=== PATIENT | female | born 1950 | race African-American/Black ===

== ENCOUNTER 2018-03-25 11:24 | Observation (INO) | payer MEDICARE, OTHER ==
--- OUTSIDE RECORDS SUMMARY | 2018-03-25 11:26 | XMS REPORT | Clinical Summary ---
:[address] [facility] Address [address] [place] [address] Care Team Providers Name Role Phone Flo Holloway MD Primary Care Provider Allergies No Known Allergies Medications Medication Sig Dispensed Refills Start Date End Date Status ammonium lactate USE HS UTD 0 03/09/2016 Active (LAC-HYDRIN) 12 % lotion LUMIGAN 0.01 % 0 03/21/2016 Active ophthalmic drops SYNTHROID 112 mcg 0 04/28/2016 Active tablet aspirin (ECOTRIN) Take 81 mg by 0 Active 81 MG enteric mouth daily. coated tablet lisinopril-hydroch Take 1 tablet 90 tablet 3 11/11/2017 Active lorothiazide by mouth (PRINZIDE,ZESTORET daily. IC) 10-12.5 mg per tablet lisinopril-hydroch TAKE ONE 30 tablet 6 05/01/2016 06/11/2017 Discontinued lorothiazide TABLET BY (PRINZIDE,ZESTORET MOUTH ONCE IC) 10-12.5 mg per DAILY FOR 30 tablet DAYS lisinopril-hydroch TAKE ONE 30 tablet 3 06/11/2017 11/11/2017 Discontinued lorothiazide TABLET BY (PRINZIDE,ZESTORET MOUTH ONCE IC) 10-12.5 mg per DAILY tablet Active Problems Not on file Encounters Date Type Specialty Care Team Description 11/11/2017 Refill Cardiology Lyla Melissa MA Med Refill 07/02/2017 Orders Only Cardiology Alejandro Thompson MD 06/11/2017 Refill Cardiology Alejandro Thompson MD Med Refill 05/29/2017 Office Visit Cardiology Alejandro Thompson MD Chronic systolic heart failure (Primary Dx); 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 Pulse 63 05/29/2017 11:20 AM MARINE OPERATIONS COORDINATOR Temperature - - Respiratory Rate - - Oxygen Saturation - - Inhaled Oxygen Concentration - - Weight 87.1 kg (192 lb) 05/29/2017 11:20 AM MARINE OPERATIONS COORDINATOR Height 165.1 cm (5' 5") 05/29/2017 11:20 AM MARINE OPERATIONS COORDINATOR Body Mass Index 31.95 05/29/2017 11:20 AM MARINE OPERATIONS COORDINATOR Plan of Treatment Date Type Specialty Care Team Description 05/29/2018 Office Visit Cardiology Alejandro Thompson MD [address] [place] [address] Health Maintenance Due Date Last Done Comments CERVICAL CANCER SCREENING 1973 BREAST CANCER SCREENING 2002 COLON CANCER SCREENING 2002 SHINGRIX VACCINE (1 of 2) 2002 ZOSTER VACCINE 2012 PNEUMOCOCCAL POLYSACCHARIDE VACCINE AGE 65 AND OVER 2017 PNEUMOCOCCAL-13 2017 INFLUENZA VACCINE 12/04/2017 Results Not on fileafter 03/24/2017 Insurance Payer Benefit Plan / Group Subscriber ID Type Phone Address UHC MEDICARE UNITED/[facility] xxxxxxxxx HMO ([place]) [facility] [place] [phone] Advance Directives Patient has advance care planning documents on file. For more information, please contact:Kirby Wang[address] [address]
[2018-03-25 12:28] LABS: Absolute Lymphocytes (CBC) 2.3 K/uL (0.7-4.9); Absolute Monocytes 0.6 K/uL (0.1-1.3); Absolute Neutrophil 4.5 K/uL (1.8-8.0); Basophils % 0.2 % (0-1.3); Eosinophils % 2.4 % (0-4.4); Hematocrit 38.4 % (36.0-45.0); MCH 30.3 pg (27.0-35.0); MCV 88.9 fL (80-100); MPV 9.2 fL (7.6-11.3); Monocytes % 7.5 % (3.3-12.3); RBC Red Blood Cell Count 4.32 M/uL (3.86-4.86)
[2018-03-25 12:36] LABS: Protime INR 1.09
--- NOTE | 2018-03-25 12:37 | RAD REPORT ---
EXAM DESCRIPTION: RAD - Chest Single View - 03/25/2018 12:26 pm CLINICAL HISTORY: CHEST PAIN Chest pain. COMPARISON: CHEST SINGLE VIEW dated 01/04/2012 FINDINGS: Portable technique limits examination quality. The lungs are grossly clear. The heart is mildly enlarged in size with a single lead pacer/ defibrill ator device. No displaced fractures. IMPRESSION: No acute intrathoracic process suspected.
[2018-03-25 12:43] LABS: ALT/SGPT 22 U/L (12-78); AST/SGOT 18 U/L (15-37); Albumin 3.9 g/dL (3.4-5.0); Alkaline Phosphatase 100 U/L (45-117); BUN Blood Urea Nitrogen 12 mg/dL (7-18); Bicarbonate 31 mmol/L (21-32); Bilirubin Direct 0.1 mg/dL (0-0.2); Bilirubin Total 0.6 mg/dL (0.2-1.0); Glucose Level 100 mg/dL (74-106); Magnesium 2.4 mg/dL (1.8-2.4); NT PRO-BNP 287 pg/mL (<125); Potassium 4.8 mmol/L (3.5-5.1); Protein, Total 8.6 g/dL (6.4-8.2); Sodium Level 142 mmol/L (136-145); Troponin (Emerg Dept Use Only) < 0.02 ng/mL (0.0-0.045)
--- NOTE | 2018-03-25 13:53 | ER ---
Nurse's Notes [facility] Name: Greta Lambert Age: 67 yrs Sex: Female : 1950 Arrival Date: 03/25/2018 Time: 11:26 Bed 4 Private MD: Out, [facility] Diagnosis: Chest pain, unspecified Presentation: 03/25 11:34 Presenting complaint: Patient states: Substernal chest pain, radiates to left arm jl7 started last night and got worse this morning. Transition of care: patient was not received from another setting of care. Onset of symptoms was March 24, 2018 at 23:00. Risk Assessment: Do you want to hurt yourself or someone else? Patient reports no desire to harm self or others. Initial Sepsis Screen: Does the patient meet any 2 criteria? No. Patient's initial sepsis screen is negative. Does the patient have a suspected source of infection? No. Patient's initial sepsis screen is negative. Care prior to arrival: None. 11:34 Method Of Arrival: Ambulatory [facility] 11:34 Acuity: DAGMAR 2 jl7 Historical: - Allergies: 11:37 No Known Allergies; jl7 - Home Meds: 11:37 Lisinopril Oral [Active]; aspirin 81 mg oral TbEC [Active]; jl7 - PMHx: 11:37 CVA; Myocardial infarction; jl7 - PSHx: 11:37 defibrillator implant device; jl7 - Immunization history:: Adult Immunizations up to date. - Social history:: Smoking status: Patient/guardian denies using tobacco. - Ebola Screening: : No symptoms or risks identified at this time. Screenin:23 Abuse screen: Denies threats or abuse. Denies injuries from another. Nutritional hb screening: No deficits noted. Tuberculosis screening: No symptoms or risk factors identified. Fall Risk None identified. Assessment: 12:00 General: Appears in no apparent distress. Behavior is calm, cooperative. Pain: hb Complains of pain in chest Pain radiates to left arm Pain currently is 0 out of 10 on a pain scale. at worst was 8 out of 10 on a pain scale. Quality of pain is described as pressure, Pain began suddenly, 1 day ago. Neuro: Level of Consciousness is awake, alert, obeys commands, Oriented to person, place, time, situation. Cardiovascular: Heart tones S1 S2 present Capillary refill < 3 seconds Patient's skin is warm and dry. Respiratory: Airway is patent Trachea midline Respiratory effort is even, unlabored, Respiratory pattern is regular, symmetrical, Breath sounds are clear bilaterally. GI: No signs and/or symptoms were reported involving the gastrointestinal system. : No signs and/or symptoms were reported regarding the genitourinary system. EENT: No signs and/or symptoms were reported regarding the EENT system. Derm: Skin is intact, is healthy with good turgor. Musculoskeletal: No signs and/or symptoms reported regarding the musculoskeletal system. 12:51 Reassessment: Patient appears in no apparent distress at this time. No changes from hb previously documented assessment. Patient and/or family updated on plan of care and expected duration. Pain level reassessed. Patient is alert, oriented x 3, equal unlabored respirations, skin warm/dry/pink. 13:45 Reassessment: Patient appears in no apparent distress at this time. No changes from hb previously documented assessment. Patient and/or family updated on plan of care and expected duration. Pain level reassessed. Patient is alert, oriented x 3, equal unlabored respirations, skin warm/dry/pink. 14:45 Reassessment: Patient appears in no apparent distress at this time. No changes from hb previously documented assessment. Patient and/or family updated on plan of care and expected duration. Pain level reassessed. Patient is alert, oriented x 3, equal unlabored respirations, skin warm/dry/pink. 15:45 Reassessment: Patient appears in no apparent distress at this time. No changes from hb previously documented assessment. Patient and/or family updated on plan of care and expected duration. Pain level reassessed. Patient is alert, oriented x 3, equal unlabored respirations, skin warm/dry/pink. 16:45 Reassessment: Patient appears in no apparent distress at this time. No changes from hb previously documented assessment. Patient and/or family updated on plan of care and expected duration. Pain level reassessed. Patient is alert, oriented x 3, equal unlabored respirations, skin warm/dry/pink. Vital Signs: 11:37 BP 162 / 80; Pulse 64; Resp 18; Temp 97.7; Pulse Ox 100% ; Weight 84.82 kg; Height 5 jl7 ft. 7 in. (170.18 cm); Pain 0/10; 12:30 BP 156 / 80; Pulse 66; Resp 15; Pulse Ox 100% on R/A; hb 13:30 BP 148 / 88; Pulse 66; Resp 16; Pulse Ox 100% on R/A; Pain 1/10; hb 14:45 BP 156 / 86; Pulse 65; Resp 15; Pulse Ox 100% on R/A; Pain 0/10; hb 16:00 BP 164 / 84; Pulse 62; Resp 16; Pulse Ox 99% on R/A; Pain 0/10; hb 11:37 Body Mass Index 29.29 (84.82 kg, 170.18 cm) jl7 ED Course: 11:04 Missed attempt(s): 20 gauge in right antecubital area. 3 11:26 Patient arrived in ED. mr 11:27 Out, of [facility] is Private Physician. mr 11:36 Triage completed. jl7 11:37 Arm band placed on right wrist. jl7 11:46 Duran Juarez PA is PHCP. jr8 11:46 Geoff Burk MD is Attending Physician. jr8 12:00 Patient has correct armband on for positive identification. Placed in gown. Bed in low hb position. Call light in reach. Side rails up X 1. quality assurance monitor final on. Pulse ox on. NIBP on. 12:04 Initial lab(s) drawn, by me, sent to lab. Inserted saline lock: 20 gauge in right 3 antecubital area, using aseptic technique. Blood collected. 12:20 Darlene Navarrete RN is Primary Nurse. hb 12:25 X-ray completed. Portable x-ray completed in exam room. Patient tolerated procedure jb2 well. 13:52 Leti Luke MD is Hospitalizing Provider. jr8 16:58 Diet: Patient given a heart healthy meal tray. Tolerated well. sg 17:30 No provider procedures requiring assistance completed. Patient admitted, IV remains in hb place. Patient maintains SpO2 saturation greater than 95% on room air. Administered Medications: 15:02 Drug: Aspirin Chewable Tablet 324 mg Route: PO; iw 16:00 Follow up: Response: No adverse reaction hb Outcome: 13:52 Decision to Hospitalize by Provider. jr8 17:30 Admitted to Tele accompanied by tech, family with patient, via wheelchair, with chart, hb Report called to Jeff RN 17:30 Condition: stable 17:30 Instructed on the need for admit, Demonstrated understanding of instructions. 17:37 Patient left the ED. hb Signatures: Phil Segura, RN JESUSITA Le Resendez mr Salvador, Obinna jb2 Chiquis Holloway, RN Duran Ibrahim PA PA jr8 Darlene Navarrete RN RN hb Leal, Jahala, RN RN jl7 Michelle Koehler 3
--- NOTE | 2018-03-25 13:53 | EDPHYS ---
Physician Documentation [facility] Name: Greta Lambert Age: 67 yrs Sex: Female : 1950 Arrival Date: 03/25/2018 Time: 11:26 Bed 4 Private MD: Out, [facility] ED Physician Geoff Burk HPI: 03/25 13:45 This 67 yrs old Black Female presents to ER via Ambulatory with complaints of Chest jr8 Pain. 13:45 The patient or guardian reports chest pain that is located primarily in the substernal jr8 area. Onset: acutely, today. The pain radiates to the left arm, the left shoulder. Associated signs and symptoms: The patient has no apparent associated signs or symptoms. The chest pain is described as a pressure. Duration: The patient or guardian reports a single episode. Modifying factors: The symptoms are alleviated by nothing. the symptoms are aggravated by nothing. Severity of pain: At its worst the pain was moderate in the emergency department the pain is unchanged. The patient has not experienced similar symptoms in the past. The patient has not recently seen a physician. Historical: - Allergies: 11:37 No Known Allergies; jl7 - Home Meds: 11:37 Lisinopril Oral [Active]; aspirin 81 mg oral TbEC [Active]; jl7 - PMHx: 11:37 CVA; Myocardial infarction; jl7 - PSHx: 11:37 defibrillator implant device; jl7 - Immunization history:: Adult Immunizations up to date. - Social history:: Smoking status: Patient/guardian denies using tobacco. - Ebola Screening: : No symptoms or risks identified at this time. ROS: 13:45 Eyes: Negative for injury, pain, redness, and discharge, ENT: Negative for injury, jr8 pain, and discharge, Neck: Negative for injury, pain, and swelling, Respiratory: Negative for shortness of breath, cough, wheezing, and pleuritic chest pain, Abdomen/GI: Negative for abdominal pain, nausea, vomiting, diarrhea, and constipation, Back: Negative for injury and pain, MS/Extremity: Negative for injury and deformity, Skin: Negative for injury, rash, and discoloration, Neuro: Negative for headache, weakness, numbness, tingling, and seizure. 13:45 Cardiovascular: Positive for chest pain, Negative for edema, orthopnea, palpitations, paroxysmal nocturnal dyspnea. Exam: 13:45 Eyes: Pupils equal round and reactive to light, extra-ocular motions intact. Lids and jr8 lashes normal. Conjunctiva and sclera are non-icteric and not injected. Cornea within normal limits. Periorbital areas with no swelling, redness, or edema. ENT: Nares patent. No nasal discharge, no septal abnormalities noted. Tympanic membranes are normal and external auditory canals are clear. Oropharynx with no redness, swelling, or masses, exudates, or evidence of obstruction, uvula midline. Mucous membranes moist. Neck: Trachea midline, no thyromegaly or masses palpated, and no cervical lymphadenopathy. Supple, full range of motion without nuchal rigidity, or vertebral point tenderness. No Meningismus. Cardiovascular: Regular rate and rhythm with a normal S1 and S2. No gallops, murmurs, or rubs. Normal PMI, no JVD. No pulse deficits. Respiratory: Lungs have equal breath sounds bilaterally, clear to auscultation and percussion. No rales, rhonchi or wheezes noted. No increased work of breathing, no retractions or nasal flaring. Abdomen/GI: Soft, non-tender, with normal bowel sounds. No distension or tympany. No guarding or rebound. No evidence of tenderness throughout. Back: No spinal tenderness. No costovertebral tenderness. Full range of motion. Skin: Warm, dry with normal turgor. Normal color with no rashes, no lesions, and no evidence of cellulitis. MS/ Extremity: Pulses equal, no cyanosis. Neurovascular intact. Full, normal range of motion. Neuro: Awake and alert, GCS 15, oriented to person, place, time, and situation. Cranial nerves II-XII grossly intact. Motor strength 5/5 in all extremities. Sensory grossly intact. Cerebellar exam normal. Normal gait. Vital Signs: 11:37 BP 162 / 80; Pulse 64; Resp 18; Temp 97.7; Pulse Ox 100% ; Weight 84.82 kg; Height 5 jl7 ft. 7 in. (170.18 cm); Pain 0/10; 12:30 BP 156 / 80; Pulse 66; Resp 15; Pulse Ox 100% on R/A; hb 13:30 BP 148 / 88; Pulse 66; Resp 16; Pulse Ox 100% on R/A; Pain 1/10; hb 14:45 BP 156 / 86; Pulse 65; Resp 15; Pulse Ox 100% on R/A; Pain 0/10; hb 16:00 BP 164 / 84; Pulse 62; Resp 16; Pulse Ox 99% on R/A; Pain 0/10; hb 11:37 Body Mass Index 29.29 (84.82 kg, 170.18 cm) jl7 MDM: 11:46 Patient medically screened. jr8 13:45 The patient was given aspirin in the Emergency Department. jr8 13:50 Data reviewed: vital signs, nurses notes, lab test result(s), EKG, radiologic studies, jr8 plain films, and as a result, I will discharge patient. Data interpreted: Pulse oximetry: on room air is 100 %. Interpretation: normal. Counseling: I had a detailed discussion with the patient and/or guardian regarding: the historical points, exam findings, and any diagnostic results supporting the discharge/admit diagnosis, lab results, radiology results, the need for further work-up and treatment in the hospital. 03/25 11:47 Order name: Basic Metabolic Panel [facility] 03/25 11:47 Order name: CBC with Diff [facility] 03/25 11:47 Order name: LFT's [facility] 03/25 11:47 Order name: Magnesium [facility] 03/25 11:47 Order name: NT PRO-BNP [facility] 03/25 11:47 Order name: PT-INR [facility] 03/25 11:47 Order name: Troponin (emerg Dept Use Only) [facility] 03/25 12:39 Order name: CBC with Automated Diff; Complete Time: 13:32 [facility] 03/25 12:40 Order name: Protime (+INR); Complete Time: 13:32 [facility] 03/25 12:43 Order name: Basic Metabolic Panel; Complete Time: 13:32 [facility] 03/25 12:43 Order name: Liver (Hepatic) Function; Complete Time: 13:32 [facility] 03/25 12:43 Order name: Troponin (Emerg Dept Use Only); Complete Time: 13:32 [facility] 03/25 12:43 Order name: NT PRO-BNP; Complete Time: 13:32 [facility] 03/25 12:43 Order name: Magnesium; Complete Time: 13:32 [facility] 03/25 11:47 Order name: XRAY Chest (1 view) [facility] 03/25 11:47 Order name: EKG; Complete Time: 11:48 [facility] 03/25 11:47 Order name: Cardiac monitoring; Complete Time: 12:05 [facility] 03/25 11:47 Order name: EKG - Nurse/Tech; Complete Time: 12:05 [facility] 03/25 11:47 Order name: IV Saline Lock; Complete Time: 12:05 [facility] 03/25 11:47 Order name: Labs collected and sent; Complete Time: 12:05 [facility] 03/25 11:47 Order name: O2 Per Protocol; Complete Time: 12:05 [facility] 03/25 11:47 Order name: O2 Sat Monitoring; Complete Time: 12:05 [facility] 03/25 12:37 Order name: RAD; Complete Time: 13:32 [facility] 03/25 14:16 Order name: Diet Regular; Complete Time: 14:16 [facility] 03/25 15:46 Order name: Diet Regular; Complete Time: 15:46 hb Administered Medications: 15:02 Drug: Aspirin Chewable Tablet 324 mg Route: PO; 16:00 Follow up: Response: No adverse reaction hb Disposition: 03/26 06:42 Co-signature as Attending Physician, Geoff Burk MD I agree with the assessment and maria luisa plan of care. Disposition: 03/25/18 13:52 Hospitalization ordered by Leti Luke for Observation. Preliminary diagnosis is Chest pain, unspecified. - Bed requested for Telemetry/MedSurg (observation). - Status is Observation. hb - Condition is Stable. - Problem is new. - Symptoms have improved. UTI on Admission? No Signatures: Dispatcher [employer] [facility] Mariah Espinoza Corey, MD MD cha Williams, Irene, RN RN Duran Juarez PA PA jr8 Darlene Navarrete, RN RN Caitlyn Castillo RN RN jl7 Corrections: (The following items were deleted from the chart) 03/25 16:19 13:52 Hospitalization Ordered by Leti Luke MD for Observation. Preliminary diagnosis bd is Chest pain, unspecified. Bed requested for Telemetry/MedSurg (observation). Status is Observation. Condition is Stable. Problem is new. Symptoms have improved. UTI on Admission? No. jr8 17:37 16:19 03/25/2018 13:52 Hospitalization Ordered by Leti Luke MD for Observation. hb Preliminary diagnosis is Chest pain, unspecified. Bed requested for Telemetry/MedSurg (observation). Status is Observation. Condition is Stable. Problem is new. Symptoms have improved. UTI on Admission? No. bd
[2018-03-25] MEDS ORDERED: ASPIRIN 81 MG CHEWABLE TABLET ONE (15:05)
--- NOTE | 2018-03-25 16:00 | EKG ---
Test Date: 2018-03-25 Test Time: 11:37:38 Metal Machinist: FAWN MEASUREMENT RESULTS: Intervals: Rate: 64 [place]: 168 QRSD: 86 QT: 392 QTc: 404 [place]: P: 71 [place]: 168 QRS: -21 T: 5 INTERPRETIVE STATEMENTS: Normal sinus rhythm T wave abnormality, consider lateral ischemia Abnormal ECG Compared to ECG 01/04/2012 21:15:56 First degree AV block no longer present T-wave abnormality still present Possible ischemia still present Electronically Signed On 03-25-18 15:59:09 OPTICAL INSTRUMENT ASSEMBLY SUPERVISOR by Laron Del Angel
[2018-03-25] MEDS ORDERED: ALBUTEROL 2.5 MG/3 ML NEB SOL NEB PRN (17:20)
--- NOTE | 2018-03-25 17:42 | P.HP ---
Certification for Inpatient Patient admitted to: Observation With expected LOS: <2 Midnights Practitioner: I am a practitioner with admitting privileges, knowledge of patient current condition, hospital course, and medical plan of care. Services: Services provided to patient in accordance with Admission requirements found in Title 42 Section 412.3 of the Code of Federal Regulations Patient History Date of Service: 03/25/18 Reason for admission: Chest pain History of Present Illness: This is a 67-year-old female with a history of NV and CVA and admitted for left- sided chest pain. Per patient pain started around 10 a.m. the morning of admission, was pressure-like pain that radiated to the left arm and down the left arm. No alleviating or exacerbating factors. Does not take any medications and did not take any medications to help with the pain. The pain lasted approximately 30 min, resolved spontaneously. She states that she has not had any prior episodes like this for a very long time though she seems to be a poor historian. Per patient, she is not really sure much because her sister takes care for at home. Sister was not at bedside today. Per patient, she does not take any medications at home, states that she was supposed to be on some previously was stopped A while ago." In the ER, her EKG had no acute changes, similar to previous ones. Chest x-ray without any acute abnormalities. 1st set of troponins negative. At the time of my exam, she is alert oriented x3, hemodynamically stable and was able to answer questions appropriately though she was unsure of much of her health history. Allergies No Known Allergies Allergy (Unverified 01/04/12 18:13) - Past Medical/Surgical History Diabetic: No Review of Systems General: Unremarkable Eyes: Unremarkable ENT: Unremarkable Respiratory: Unremarkable Cardiovascular: Chest Pain, As per HPI Gastrointestinal: Unremarkable Genitourinary: Unremarkable Musculoskeletal: Unremarkable Integumentary: Unremarkable Neurological: Unremarkable Lymphatics: Unremarkable Physical Examination - Physical Exam General: Alert, In no apparent distress, Oriented x3 HEENT: Atraumatic, PERRLA, Mucous membr. moist/pink, EOMI, Sclerae nonicteric Neck: Supple, 2+ carotid pulse no bruit, No LAD, Without JVD or thyroid abnormality Respiratory: Clear to auscultation bilaterally, Normal air movement Cardiovascular: Regular rate/rhythm, Normal S1 S2 Gastrointestinal: Normal bowel sounds, No tenderness Musculoskeletal: No tenderness Integumentary: No rashes Neurological: Normal gait, Normal speech, Normal strength at 5/5 x4 extr, Normal tone, Normal affect Lymphatics: No axilla or inguinal lymphadenopathy - Studies Laboratory Data (last 24 hrs) 03/25/18 12:01: PT 12.9 H, INR 1.09 03/25/18 12:01: WBC 7.6, Hgb 13.1, Hct 38.4, Plt Count 187 03/25/18 12:01: Sodium 142, Potassium 4.8, BUN 12, Creatinine 0.90, Glucose 100 , Magnesium 2.4, Total Bilirubin 0.6, AST 18, ALT 22, Alkaline Phosphatase 100 Assessment and Plan - Plan This 67-year-old female with: Chest pain, rule out NV Pain is now resolved, though patient with a history of stroke and had NV in the past. Trend troponins, serial EKG Start beta-chely, [place]-inhibitor as needed. Oxygen as needed Morphine for pain control as needed. Echo ordered, pending. IV fluids History of CVA No evidence of focal neurological deficits at this time. Will continue to monitor History of NV DVT prophylaxis: Lovenox. GI prophylaxis: Not needed Diet: Heart healthy Disposition: Admit patient to floor with tele. Monitor overnight, pending symptomatic improvement and echo. Will confirm with sister regarding medications and other medical conditions once sister present at bedside. - Advance Directives Does patient have a Living Will: No Does patient have a Durable POA for Healthcare: No Physician Review: Patient Assessed, Agree with Above Assessment and Plan Time Spent Managing Pts Care (In Minutes): 45
[2018-03-25 20:08] VITALS: BMI 30.2
[2018-03-26 04:59] LABS: Absolute Lymphocytes (CBC) 2.8 K/uL (0.7-4.9); Absolute Monocytes 0.8 K/uL (0.1-1.3); Absolute Neutrophil 4.8 K/uL (1.8-8.0); Basophils % 0.3 % (0-1.3); Lymphocytes % 32.2 % (15.3-44.8); MCH 29.9 pg (27.0-35.0); MCV 89.2 fL (80-100); MPV 8.8 fL (7.6-11.3); Monocytes % 9.6 % (3.3-12.3); RBC Red Blood Cell Count 4.03 M/uL (3.86-4.86)
[2018-03-26 05:12] LABS: Albumin 3.5 g/dL (3.4-5.0); Bilirubin Total 0.5 mg/dL (0.2-1.0); Potassium 4.5 mmol/L (3.5-5.1); Protein, Total 7.7 g/dL (6.4-8.2)
[2018-03-26] MEDS ORDERED: ENOXAPARIN 40 MG/0.4 ML SQ SCH (09:00)
[2018-03-26 10:48] VITALS: BP 169/74; TEMP 98.5
[2018-03-26 12:04] VITALS: O2SAT 96
--- NOTE | 2018-03-26 12:34 | ECHO ---
HEIGHT: 5 ft 6.5 in WEIGHT: 190 lb 1 oz DATE OF STUDY: 03/26/[address]: Leti Luke MD 2-DIMENSIONAL: YES M.MODE: YES DOPPLER: YES COLOR FLOW: YES TDS: PORTABLE: DEFINITY: BUBBLE STUDY: DIAGNOSIS: CHEST PAIN CARDIAC HISTORY: CATHERIZATION: NO SURGERY: NO PROSTHETIC VALVE: NO PACEMAKER: YES MEASUREMENTS (cm) DIASTOLIC (NORMALS) SYSTOLIC (NORMALS) IVSd 1.3 (0.6-1.2) LA Diam 3.4 (1.9-4.0) LVEF 64% LVIDd 4.3 (3.5-5.7) LVIDs 2.8 (2.0-3.5) %FS 34% LVPWd 1.3 (0.6-1.2) Ao Diam 2.3 (2.0-3.7) 2 DIMENSIONAL ASSESSMENT: RIGHT ATRIUM: NORMAL LEFT ATRIUM: NORMAL RIGHT VENTRICLE: PACEMAKER CATHETER LEFT VENTRICLE: NORMAL TRICUSPID VALVE: NORMAL MITRAL VALVE: NORMAL PULMONIC VALVE: NORMAL AORTIC VALVE: NORMAL PERICARDIAL EFFUSION: NONE AORTIC ROOT: NORMAL LEFT VENTRICULAR WALL MOTION: NORMAL DOPPLER/COLOR FLOW: MILD MITRAL REGURGITATION AND TRICUSPID REGURGITATION. NORMAL RIGHT VENTRICULAR SYSTOLIC PRESSURE. COMMENTS: TECHNOLOGIST: TED KIM
--- NOTE | 2018-03-26 14:51 | P.SSS ---
Patient History Date of Service: 03/26/18 Reason for admission: Chest pain History of Present Illness: This is a 67-year-old female with a history of UT and CVA and admitted for left- sided chest pain. Per patient pain started around 10 a.m. the morning of admission, was pressure-like pain that radiated to the left arm and down the left arm. No alleviating or exacerbating factors. Does not take any medications and did not take any medications to help with the pain. The pain lasted approximately 30 min, resolved spontaneously. She states that she has not had any prior episodes like this for a very long time though she seems to be a poor historian. Per patient, she is not really sure much because her sister takes care for at home. Sister was not at bedside today. Per patient, she does not take any medications at home, states that she was supposed to be on some previously was stopped A while ago." In the ER, her EKG had no acute changes, similar to previous ones. Chest x-ray without any acute abnormalities. 1st set of troponins negative. At the time of my exam, she is alert oriented x3, hemodynamically stable and was able to answer questions appropriately though she was unsure of much of her health history. Allergies No Known Allergies Allergy (Verified 03/25/18 18:10) Home Medications: Aspirin 81 mg PO DAILY 03/25/18 Levothyroxine [Synthroid*] 125 mcg PO [id number] 03/25/18 Lisinopril 10 mg PO DAILY 03/25/18 - Past Medical/Surgical History Has patient received pneumonia vaccine in the past: No Diabetic: No -: Stroke -: Heart attack -: Hypertension -: Hypothyroidism -: appendectomy -: defib placement - Social History Smoking Status: Former smoker Alcohol use: No CD- Drugs: No Caffeine use: Yes Place of Residence: Home Review of Systems As noted Physical Examination - Vital Signs Temperature: 98.5 F Blood Pressure: 169/74 Pulse: 64 Respirations: 20 Pulse Ox (%): 96 - Physical Exam General: Alert, In no apparent distress, Oriented x3, Other (Unable to recall short-term) HEENT: Atraumatic, PERRLA, Mucous membr. moist/pink, EOMI, Sclerae nonicteric Neck: Supple, 2+ carotid pulse no bruit, No LAD, Without JVD or thyroid abnormality Respiratory: Clear to auscultation bilaterally, Normal air movement Cardiovascular: Regular rate/rhythm, Normal S1 S2 Gastrointestinal: Normal bowel sounds, No tenderness Musculoskeletal: No tenderness Integumentary: No rashes Neurological: Normal speech, Normal strength at 5/5 x4 extr, Normal tone, Normal affect Treatment Summary: Patient was admitted for chest pain. Chest pain had resolved prior to coming to the hospital, she was admitted for 24 observation. Troponins remained negative, echocardiogram was normal. No complaints of chest pains while in the hospital. Patient's ham stripper is Dr. Thompson in [place]. At the time of discharge, patient was alert oriented x3, hemodynamically stable and denying any chest pain. Tolerating a regular diet, denies any nausea, vomiting, and diaphoresis, shortness of breath, and abdominal complaints or complaints. Patient's symptoms/diagnosis was explained, all questions were answered and patient and sister verbalized understanding. She was discharged with instructions to follow up with cardiology in 1-2 weeks. No medication changes made at this time. - Disposition Discharge Date: 03/26/18 Disposition: ROUTINE DISCHARGE Condition: GOOD Patient Discharge Instructions: Please follow up with the primary care physician in 1 week. Please follow up with ham stripper in 2 weeks Diet: AHA Activity: Ad thierno Physician Review: Patient Assessed, Agree with Above Assessment and Plan Time Spent Managing Pts Care (In Minutes): 45
== END 2018-03-26 15:01 | disposition home or self-care (01) ==
LOC: ER 11:24 → ERHOLD 14:19 → 2ND 18:02
PROVIDERS: ADMIT Family Medicine; ATTEND Family Medicine
DX: R07.9 Chest pain, unspecified (principal); I10 Essential (primary) hypertension; E03.9 Hypothyroidism, unspecified; Z95.810 Presence of automatic (implantable) cardiac defibrillator; I25.2 Old myocardial infarction; Z86.73 Personal history of transient ischemic attack (TIA), and cerebral infarction without residual deficits
CPT/HCPCS: 36415; 71045; 80048; 80053; 80061; 80076; 83735; 83880; 84484 ×3; 85025 ×2; 85610; 93005; 93306; 94760 ×3; 99285; J1650; G0378

== ENCOUNTER 2018-04-25 10:57 | Emergency (ER) | payer MEDICARE ==
--- NOTE | 2018-04-25 12:04 | ER ---
Nurse's Notes [facility] Name: Greta Lambert Age: 67 yrs Sex: Female : 1950 Arrival Date: 04/25/2018 Time: 11:00 Bed 18 Private MD: Out, [facility] Diagnosis: Low back pain Presentation: 04/25 11:01 Presenting complaint: Patient states: my back is hurting since this morning; denies hj trauma, pain non the L lower part; denies radiating pain; denies N/V; denies fever an chills; pain is 8/10;. Transition of care: patient was not received from another setting of care. Onset of symptoms was April 25, 2018. Risk Assessment: Do you want to hurt yourself or someone else? Patient reports no desire to harm self or others. Initial Sepsis Screen: Does the patient meet any 2 criteria? No. Patient's initial sepsis screen is negative. Does the patient have a suspected source of infection? No. Patient's initial sepsis screen is negative. Care prior to arrival: None. 11:01 Method Of Arrival: Ambulatory 11: Acuity: DAGMAR 4 hj Triage Assessment: 11:04 General: Appears in no apparent distress. uncomfortable, Behavior is calm, cooperative, hj appropriate for age. Pain: Complains of pain in left low back. Musculoskeletal: Circulation, motion, and sensation intact. Capillary refill. Historical: - Allergies: 11:04 No Known Allergies; hj - Home Meds: 11:04 lisinopril Oral [Active]; levothyroxine oral [Active]; aspirin 81 mg Oral TbEC [Active];hj - PMHx: 11:04 CVA; Myocardial infarction; hj - PSHx: 11:04 defibrillator implant device; hj - Immunization history:: Adult Immunizations up to date. - Social history:: Smoking status: Patient/guardian denies using tobacco, Patient/guardian denies using alcohol. - Ebola Screening: : Patient negative for fever greater than or equal to 101.5 degrees Fahrenheit, and additional compatible Ebola Virus Disease symptoms Patient denies exposure to infectious person Patient denies travel to an Ebola-affected area in the 21 days before illness onset. Screenin:04 Abuse screen: Denies threats or abuse. Denies injuries from another. Nutritional hj screening: No deficits noted. Tuberculosis screening: No symptoms or risk factors identified. Fall Risk None identified. Assessment: 11:30 General: Appears in no apparent distress. uncomfortable, Behavior is calm, cooperative, jl7 appropriate for age. Pain: Complains of pain in low back area Pain does not radiate. Pain currently is 8 out of 10 on a pain scale. Is continuous. Neuro: Level of Consciousness is awake, alert, obeys commands, Oriented to person, place, time, Adhesive Bandage Making Operator are equal bilaterally Moves all extremities. Full function Gait is steady. Cardiovascular: Patient's skin is warm and dry. Respiratory: Airway is patent Respiratory effort is even, unlabored, Respiratory pattern is regular, symmetrical. GI: No signs and/or symptoms were reported involving the gastrointestinal system. : No signs and/or symptoms were reported regarding the genitourinary system. EENT: No signs and/or symptoms were reported regarding the EENT system. Derm: Skin is pink, warm \T\ dry. Musculoskeletal: No signs and/or symptoms reported regarding the musculoskeletal system. Vital Signs: 11:04 BP 137 / 61; Pulse 61; Resp 18; Temp 97.6(TE); Pulse Ox 98% on R/A; Weight 77.11 kg; hj Height 5 ft. 6 in. (167.64 cm); Pain 8/10; 11:30 BP 137 / 62; Pulse 62; Resp 16; Pulse Ox 98% ; Pain 8/10; jl7 11:04 Body Mass Index 27.44 (77.11 kg, 167.64 cm) ED Course: 11:00 Patient arrived in ED. mr 11:00 Out, [facility] is Private Physician. mr 11:03 Triage completed. 11:04 Arm band placed on left wrist. 11:04 Patient has correct armband on for positive identification. Bed in low position. Call light in reach. Side rails up X 1. Adult w/ patient. 11:08 Akila Beck FNP-C [facility] sn 11:08 Canelo Meehan MD is Attending Physician. [facility] 11:42 Urine Culture Sent. [facility] 11:43 Urine Microscopic Only Sent. [facility] 11:43 Urine collected: clean catch specimen, clear. 5 11:52 Urine Culture Sent. [facility] 11:52 Urine Dipstick--Ancillary (enter results) Sent. [facility] 11:52 Urine Microscopic Only Sent. [facility] 11:59 Caitlyn Castillo, RN is Primary Nurse. 7 12:25 No provider procedures requiring assistance completed. Patient did not have IV access jl7 during this emergency room visit. Administered Medications: 12:19 Drug: Flexeril 10 mg Route: PO; jl7 12:26 Follow up: Response: No adverse reaction; Medication administered at discharge. 7 12:22 Not Given (Patient Refused): TORadol 60 mg IM once 7 Outcome: 12:04 Discharge ordered by . snceline 12:25 Discharged to home ambulatory. jl7 12:25 Condition: stable 12:25 Discharge instructions given to patient, family, Instructed on discharge instructions, follow up and referral plans. medication usage, Demonstrated understanding of instructions, follow-up care, medications, Prescriptions given X 2. 12:26 Patient left the ED. 7 Signatures: Akila Beck, CONSUMER CREDIT COUNSELOR-C CONSUMER CREDIT COUNSELOR-Csnw MalLe Odilon Valadez, RN RN Abigail Briceño [facility] Caitlyn Castillo, RN RN jl7 Corrections: (The following items were deleted from the chart) 11:06 11:04 Pulse 61bpm; Resp 18bpm; Pulse Ox 98% RA; Temp 97.6F Temporal; 77.11 kg; Height 5 hj ft. 6 in.; BMI: 27.4; Pain 8/10; hj
--- NOTE | 2018-04-25 12:04 | EDPHYS ---
Physician Documentation [facility] Name: Greta Lambert Age: 67 yrs Sex: Female : 1950 Arrival Date: 04/25/2018 Time: 11:00 Bed 18 Private MD: Out, [facility] ED Physician Canelo Meehan HPI: 04/25 12:11 This 67 yrs old Black Female presents to ER via Ambulatory with complaints of Back Pain.snw 12:11 The patient presents with pain that is acute. The symptoms are located in the low back. snw Onset: The symptoms/episode began/occurred suddenly, today. The pain does not radiate. Associated signs and symptoms: The patient has no apparent associated signs or symptoms. The problem was sustained got up from bed and noted pain, pain on movement from sitting to standing.. Severity of symptoms: At their worst the symptoms were moderate. The patient has experienced similar episodes in the past. The patient has not recently seen a physician. denies trauma, fever, dysuria. Historical: - Allergies: 11:04 No Known Allergies; hj - Home Meds: 11:04 lisinopril Oral [Active]; levothyroxine oral [Active]; aspirin 81 mg Oral TbEC [Active];hj - PMHx: 11:04 CVA; Myocardial infarction; hj - PSHx: 11:04 defibrillator implant device; hj - Immunization history:: Adult Immunizations up to date. - Social history:: Smoking status: Patient/guardian denies using tobacco, Patient/guardian denies using alcohol. - Ebola Screening: : Patient negative for fever greater than or equal to 101.5 degrees Fahrenheit, and additional compatible Ebola Virus Disease symptoms Patient denies exposure to infectious person Patient denies travel to an Ebola-affected area in the 21 days before illness onset. ROS: 12:08 Constitutional: Negative for fever, chills, and weight loss, Eyes: Negative for injury, snw pain, redness, and discharge, ENT: Negative for injury, pain, and discharge, Neck: Negative for injury, pain, and swelling, Cardiovascular: Negative for chest pain, palpitations, and edema, Respiratory: Negative for shortness of breath, cough, wheezing, and pleuritic chest pain, Abdomen/GI: Negative for abdominal pain, nausea, vomiting, diarrhea, and constipation, : Negative for injury, bleeding, discharge, and swelling, MS/Extremity: Negative for injury and deformity, Skin: Negative for injury, rash, and discoloration, Neuro: Negative for headache, weakness, numbness, tingling, and seizure. 12:08 Back: Positive for pain with movement, of the lumbar area. Exam: 12:06 Constitutional: This is a well developed, well nourished patient who is awake, alert, snw and in no acute distress. Head/Face: Normocephalic, atraumatic. Eyes: Pupils equal round and reactive to light, extra-ocular motions intact. Lids and lashes normal. Conjunctiva and sclera are non-icteric and not injected. Cornea within normal limits. Periorbital areas with no swelling, redness, or edema. ENT: Nares patent. No nasal discharge, no septal abnormalities noted. Tympanic membranes are normal and external auditory canals are clear. Oropharynx with no redness, swelling, or masses, exudates, or evidence of obstruction, uvula midline. Mucous membranes moist. Neck: Trachea midline, no thyromegaly or masses palpated, and no cervical lymphadenopathy. Supple, full range of motion without nuchal rigidity, or vertebral point tenderness. No Meningismus. Chest/axilla: Normal chest wall appearance and motion. Nontender with no deformity. No lesions are appreciated. Cardiovascular: Regular rate and rhythm with a normal S1 and S2. No gallops, murmurs, or rubs. Normal PMI, no JVD. No pulse deficits. Respiratory: Lungs have equal breath sounds bilaterally, clear to auscultation and percussion. No rales, rhonchi or wheezes noted. No increased work of breathing, no retractions or nasal flaring. Abdomen/GI: Soft, non-tender, with normal bowel sounds. No distension or tympany. No guarding or rebound. No evidence of tenderness throughout. Skin: Warm, dry with normal turgor. Normal color with no rashes, no lesions, and no evidence of cellulitis. MS/ Extremity: Pulses equal, no cyanosis. Neurovascular intact. Full, normal range of motion. Neuro: Awake and alert, GCS 15, oriented to person, place, time, and situation. Cranial nerves II-XII grossly intact. Motor strength 5/5 in all extremities. Sensory grossly intact. Cerebellar exam normal. Normal gait. 12:06 Back: pain, that is moderate, ROM is normal, painful, with flexion, normal spinal alignment noted, CVA tenderness, is absent, muscle spasm, is appreciated in the low back area. 12:06 Musculoskeletal/extremity: Exam is negative for 12:06 Skin: Exam negative for 12:06 Neuro: Exam negative for acute changes. Vital Signs: 11:04 BP 137 / 61; Pulse 61; Resp 18; Temp 97.6(TE); Pulse Ox 98% on R/A; Weight 77.11 kg; hj Height 5 ft. 6 in. (167.64 cm); Pain 8/10; 11:30 BP 137 / 62; Pulse 62; Resp 16; Pulse Ox 98% ; Pain 8/10; jl7 11:04 Body Mass Index 27.44 (77.11 kg, 167.64 cm) hj MDM: 11:56 Patient medically screened. snw 12:08 Data reviewed: vital signs, nurses notes. Data interpreted: Pulse oximetry: on room air snw is 98 %. Interpretation: normal. Counseling: I had a detailed discussion with the patient and/or guardian regarding: the historical points, exam findings, and any diagnostic results supporting the discharge/admit diagnosis, the presence of at least one elevated blood pressure reading (>120/80) during this emergency department visit, lab results, the need for outpatient follow up, to return to the emergency department if symptoms worsen or persist or if there are any questions or concerns that arise at home. Special discussion: Based on the history and exam findings, there is no indication for further emergent testing or inpatient evaluation. I discussed with the patient/guardian the need to see the primary care provider for further evaluation of the symptoms. 04/25 11:13 Order name: Urine Culture snw 04/25 11:13 Order name: Urine Microscopic Only; Complete Time: 12:12 snw 04/25 11:13 Order name: Urine Dipstick-Ancillary (obtain specimen); Complete Time: 11:52 snw 04/25 11:43 Order name: Urine Dipstick--Ancillary (enter results); Complete Time: 12:25 lt1 Administered Medications: 12:19 Drug: Flexeril 10 mg Route: PO; jl7 12:26 Follow up: Response: No adverse reaction; Medication administered at discharge. jl7 12:22 Not Given (Patient Refused): TORadol 60 mg IM once jl7 Disposition: 14:48 Co-signature as Attending Physician, Canelo Meehan MD. rn Disposition: 04/25/18 12:04 Discharged to Home. Impression: Low back pain. - Condition is Stable. - Discharge Instructions: Back Pain, Adult, Musculoskeletal Pain, Back Injury Prevention, [id number], Back Exercises, [id number], Cryotherapy, Rehydration, Adult, Heat Therapy. - Prescriptions for Diclofenac Sodium 75 mg Oral Tablet, Delayed Release (E.C.) - take 1 tablet by ORAL route 2 times per day; 14 tablet. orphenadrine citrate 100 mg Oral Tablet Sustained Release - take 1 tablet by ORAL route 2 times per day As needed; 20 tablet. - Medication Reconciliation Form, Thank You Letter, Antibiotic Education, Prescription Opioid Use form. - Follow up: Private Physician; When: 2 - 3 days; Reason: Recheck today's complaints, Continuance of care, Re-evaluation by your physician. Follow up: Emergency Department; When: As needed; Reason: Worsening of condition. Signatures: Dispatcher [employer] EDMS Akila Beck, SUPERVISOR FILTRATION-C SUPERVISOR FILTRATION-Csnw Canelo Meehan MD MD rn Joaquin, Henry, RN RN hj Leal, Jahala, RN RN jl7 Corrections: (The following items were deleted from the chart) 12:26 12:04 04/25/2018 12:04 Discharged to Home. Impression: Low back pain. Condition is jl7 Stable. Forms are Medication Reconciliation Form, Thank You Letter, Antibiotic Education, Prescription Opioid Use. Follow up: Private Physician; When: 2 - 3 days; Reason: Recheck today's complaints, Continuance of care, Re-evaluation by your physician. Follow up: Emergency Department; When: As needed; Reason: Worsening of condition. snw
[2018-04-25 12:10] LABS: Urine Bacteria <20 /HPF (<20); Urine Culture Reflex Order NOT NEEDED; Urine RBC <5 /HPF (NONE SEEN)
[2018-04-25 12:20] LABS: Urine Blood NEGATIVE (NEG); Urine Glucose NEGATIVE (NEG); Urine Protein NEGATIVE (NEG); Urine Specific Gravity 1.025 (1.005-1.030); Urine pH 5.5 (5.0-7.0)
[2018-04-25] MEDS ORDERED: KETOROLAC 30 MG/ML INJ ONE (12:25)
[2018-04-25] MEDS ORDERED: CYCLOBENZAPRINE 10 MG TAB ONE (12:25)
[2018-04-25 12:46] VITALS: TEMP 97.6; O2SAT 98
[2018-04-25 12:48] VITALS: BP 137/62
--- OUTSIDE RECORDS SUMMARY | 2018-04-25 18:51 | XMS REPORT | Clinical Summary ---
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 Last Filed Vital Signs Vital Sign Reading Time Taken Blood Pressure 158/60 05/29/2017 11:20 AM DEMOLITION ENGINEER Pulse 63 05/29/2017 11:20 AM DEMOLITION ENGINEER Temperature - - Respiratory Rate - - Oxygen Saturation - - Inhaled Oxygen Concentration - - Weight 87.1 kg (192 lb) 05/29/2017 11:20 AM DEMOLITION ENGINEER Height 165.1 cm (5' 5") 05/29/2017 11:20 AM DEMOLITION ENGINEER Body Mass Index 31.95 05/29/2017 11:20 AM DEMOLITION ENGINEER Plan of Treatment Date Type Specialty Care Team Description 05/29/2018 Office Visit Cardiology Alejandro Thompson MD [address] [place] [address] Health Maintenance Due Date Last Done Comments CERVICAL CANCER SCREENING 1973 BREAST CANCER SCREENING 2002 COLON CANCER SCREENING 2002 SHINGLES VACCINES (1 of 2) 2002 PNEUMOCOCCAL POLYSACCHARIDE VACCINE AGE 65 AND OVER 2017 PNEUMOCOCCAL-13 2017 INFLUENZA VACCINE 12/04/2017 Results Not on fileafter 04/24/2017 Insurance Payer Benefit Plan / Group Subscriber ID Type Phone Address UHC MEDICARE UNITED/CARE [facility] xxxxxxxxx HMO Advance Directives Patient has advance care planning documents on file. For more information, please contact:[place] [address]
== END 2018-04-25 12:26 | disposition home or self-care (01) ==
LOC: ER 10:57
DX: M54.5 Low back pain (principal); I25.2 Old myocardial infarction; Z86.73 Personal history of transient ischemic attack (TIA), and cerebral infarction without residual deficits; Z79.82 Long term (current) use of aspirin
CPT/HCPCS: 81003; 81015; 87086; 87088; 99283

== ENCOUNTER 2020-02-16 13:15 | Emergency (ER) | payer MEDICARE ==
--- OUTSIDE RECORDS SUMMARY | 2020-02-16 14:18 | XMS REPORT | Clinical Summary ---
:1950 Author Organization [facility] Address [address] [place] [address] Care Team Providers Name Role Phone Flo Holloway MD Primary Care Provider Allergies No Known Active Allergies Medications Medication Sig Dispensed Refills Start End Date Status Date LUMIGAN 0.01 % nightly. 0 Activ e ophthalmic drops 6 aspirin (ECOTRIN) 81 MG Take 81 mg 0 Active enteric coated tablet by mouth daily. mv-min/iron/folic/calciu Take by 0 Active m/vitK (WOMEN'S mouth MULTIVITAMIN ORAL) daily. lisinopriL-hydrochloroth Take 1 30 tablet 0 Active iazide (PRINZIDE) tablet by 0 10-12.5 mg per tablet mouth once daily carvediloL (COREG) 12.5 Take 1 60 tablet 11 Active MG tabletIndications: tablet 0 21 Chronic systolic heart (12.5 mg failure (HCC) total) by mouth 2 (two) times a day. levothyroxine Take 125 0 Active (SYNTHROID) 125 mcg mcg by tablet mouth daily. atorvastatin (LIPITOR) Take 1 30 tablet 11 0 Active 20 mg tabletIndications: tablet (20 0 21 Hypercholesterolemia mg total) by mouth daily. Default OP ins SYNTHROID 112 mcg tablet daily. 0 12/20 Discontinued 6 20 (Dose adjustment ) lisinopril-hydrochloroth Take 1 90 tablet 3 05/15 Discontinued iazide tablet by 8 20 (PRINZIDE,ZESTORETIC) mouth 10-12.5 mg per tablet daily. 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) (Primary Dx); MD Zamudio systlola c heart failure (HCC); Bilateral carot id artery occlusion; Presence of aut omatic cardioverter/defibrillator (AICD); 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); Hypercholestero lemia 12/21/2019 Travel 12/15/2019 Orders Only Cardiology ProviderRuben MD 11/26/2019 Travel 11/02/2019 Office Visit Cardiology Alejandro Thompson, Atheroscirene rosis of [place] coronary artery of [place] heart with angina pectoris (HCC) (Primary Dx); MD Robb brown c heart failure (HCC); 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); Presence of aut omatic cardioverter/defibrillator (AICD); Diabetes mellit us without complication (HCC); Hypercholestero lemia; Bilateral carot id artery occlusion; Atherosclerosis of [place] artery of both lower extremities with intermittent claudication (HCC); Abdominal aorti c aneurysm without rupture (HCC) 11/02/2019 Orders Only Cardiology ProviderRuben MD 11/02/2019 Travel 10/19/2019 Travel 09/17/2019 Refill Alejandro Escobar Med Refill 05/16/2019 Refill Alejandro Escobar Med Refill 05/15/2019 Refill Alejandro Escobar, Med Refill after 02/15/2019 Surgical History Surgery Date Site/Laterality Comments CARDIAC DEFIBRILLATOR PLACEMENT Medical History Medical History Date Comments Arrhythmia CVA (cerebral vascular accident) ([facility]) Hypertension Myocardial infarction (HCC) ACC/AHA stage C chronic systolic heart failure EF is 35 to 40% ([facility]) Coronary artery disease 1998 hx of anterior w all infarct Social History Tobacco Use Types Packs/Day Years Used Date Former Smoker Smokeless Tobacco: Former User Sex Assigned at Date Recorded Not on file Last Filed Vital Signs Vital Sign Reading Time Taken Comments Blood Pressure 150/67 12/21/2019 12:14 PM CDT Pulse 70 12/21/2019 12:14 PM CDT Temperature 36.5 C (97.7 F) 11/02/2019 9:27 AM CDT Respiratory Rate - - Oxygen Saturation - - Inhaled Oxygen Concentration - - Weight 76.7 kg (169 lb) 12/21/2019 12:14 PM CDT Height 170.2 cm (5' 7") 12/21/2019 8:40 AM CDT Body Mass Index 26.47 12/21/2019 8:40 AM CDT Plan of Treatment Date Type Specialty Care Team Description 12/20/2020 Office Visit Cardiology Alejandro Thompson MD [id number] [phone] Health Maintenance Due Date Last Done Comments DIABETIC RETINAL EYE EXAM 1950 DIABETIC FOOT EXAM 1962 URINE MICROALBUMIN 1962 BREAST CANCER SCREENING 2002 COLONOSCOPY SCREENING 2002 SHINGLES VACCINES (#1) 2002 65+ PNEUMOCOCCAL VACCINE (1 of 1 - PPSV23) 2017 INFLUENZA VACCINE 12/05/2019 Procedures Procedure Name Priority Date/Time Associated Diagnosis Comme nts NM MYOCARDIAL Routine 12/21/2019 Atherosclerosis of [place] R esults for PERFUSION REST 12:03 PM CDT coronary artery of [place] this procedure STRESS 1 DAY heart with angina pectoris a re in the ([facility]) results section. CV STRESS TEST Routine 12/21/2019 Atherosclerosis [place] Results for NUCLEAR CARDIO 12:03 PM CDT coronary artery of [place] this procedure heart with angina pectoris a re in the ([facility]) results section. PV PHYSIOLOGIC Routine 12/21/2019 Atherosclerosis [place] Results for ARTERIAL LOWER 11:24 AM CDT artery of both lower this procedure EXTREMITY W EXERCISE extremities with are in the intermittent claudication re sults ([facility]) section. US DUPLEX ARTERIAL Routine 12/21/2019 Atherosclerosis of jj nestor Results for LOWER EXTREMITY 11:13 AM CDT artery of both lower this procedure BILATERAL extremities with are in the intermittent claudication re sults ([facility]) section. US DUPLEX AORTA Routine 12/21/2019 Abdominal aortic aneurysm Results for INFERIOR VENA CAVA 10:30 AM CDT without rupture (HCC) this procedure COMPLETE are in the results section. US CAROTID DUPLEX Routine 12/21/2019 Bilateral carotid arter y Results for BILATERAL 10:18 AM CDT occlusion this procedure are in the results section. TTE COMPLETE, WO Routine 12/21/2019 Atherosclerosis of nativ e Results for CONTRAST, W DOPPLER 9:55 AM CDT coronary artery of na tive this procedure ([id number]) heart with angina pectoris a re in the ([facility]) results section. LIPID PANEL Routine 12/12/2019 Hypercholesterolemia Results for 9:11 AM CDT this procedure are in the results section. HEPATIC FUNCTION Routine 12/12/2019 Hypercholesterolemia Res ults for PANEL 9:11 AM CDT this procedure are in the results section. HEMOGLOBIN A1C Routine 12/12/2019 Diabetes mellitus without Results for 9:11 AM CDT complication ([facility]) this proc edure are in the results section. CBC WITH PLATELET Routine 12/12/2019 Atherosclerosis of fior ve Results for AND DIFFERENTIAL 9:11 AM CDT coronary artery of nativ e this procedure heart with angina pectoris a re in the ([facility]) results section. BASIC METABOLIC Routine 12/12/2019 Atherosclerosis [place] Results for PANEL 9:11 AM CDT coronary artery of [place] th is procedure heart with angina pectoris a re in the ([facility]) results section. [id number] Routine 12/12/2019 IMPLANTABLE Routine 07/16/2019 DEFIBRILLATOR ON after 02/15/2019 Results Cv stress test (12/21/2019 12:03 PM CDT) Pathologist Sig nature Resting HR 59 [facility] Resting BP 150/73 [facility] Peak MET Achieved 1.0 [facility] Protocol Name LEXISCAN [facility] Time in Exercise Phase 00:01:07 [facility] Max Systolic BP 150 [facility] Max Diastolic BP 73 [facility] Max Heart Rate 88 [facility] Max Predicted Heart 153 [facility] MUSE Rate Target HR Formula (220 - Age)*100% [facility] MUSE Test Indication Screening for CAD [facility]USE Chest Pain Statement none [facility] Reason for Termination LEXISCAN INFUSED [facility] MUSE Target HR 153.00 bpm [facility] M[facility] Percent HR 57.52 % [facility] Post Peak HR 88 bpm [facility] Post Peak BP 150/67 mmHg [facility] MUSE Specimen Narrative Performed At This result has an attachment that is no t available. Lexiscan myocardial perfusion imaging study [facility] MUSE No ischemia stress EKG change No chest pain Normal hemodynamics Myocardial perfusion imaging is performed Performing Organization Address [facility] Phon e Number [facility] MUSE [address] [place] [address] Nm myocardial perfusion (12/21/2019 12:03 PM CDT) Pathologist Sig nature Target HR 153.00 bpm [facility] Exercise duration (sec) 7 sec [facility] Resting HR 59 BPM [facility] Resting BP 150/73 mmHg [facility] Percent HR 57.52 % [facility] Exercise duration (min) 1 min [facility] Estimated workload 1.0 METS [facility] Post Peak HR 88 bpm [facility] Post Peak BP 150/73 mmHg [facility] Max Predicted Heart Rate 153 BPM [facility] Specimen Narrative Performed At This result has an attachment that is no t available. [facility] Study Quality: good. The study is consistent with myocardial infarction. This study result indicates an intermediate risk of cardiac , or nonfatal infarction, over the ensuing year. The study is consistent with myocardial infarction. Abnormal and with global abnormality left ventricul ar systolic function. Global wall motion is mildly hypokinetic. Large apical scar without ischemia. Mildly reduced LV systolic function. Performing Organization Address [facility] Phon e Number [facility] [address] [place] [address] Pv physiologic arterial lower extremity w exercise w cristal (12/21/2019 11:24 AM CDT) Pathologist Sig nature Right CRISTAL 0.97 [facility] Left CRISTAL 0.97 [facility] Specimen Narrative Performed At This result has an attachment that is no t available. Normal bilateral ABIs [facility] Right CRISTAL is 1.1 and left CRISTAL is 1.2 Performing Organization Address [facility] Phon e Number [facility] [address] [place] [address] Us duplex arterial lower extremity (12/21/2019 11:13 AM CDT) Pathologist Sig nature LT ATIB DIST PSV 31.50 cm/s [facility] LT ATIB PROX PSV 70.00 cm/s [facility] RT ATIB DIST PSV 47.20 cm/s [facility] RT ATIB PROX PSV 72.00 cm/s [facility] LT PROX PAINTING INSTRUCTOR PSV 161.00 cm/s [facility] RT PROX PAINTING INSTRUCTOR PSV 215.00 cm/s [facility] LT JUWAN PROX PSV -88.60 cm/s [facility] RT JUWAN PROX PSV -61.50 cm/s [facility] LT POP DIST PSV -106.00 cm/s [facility] LT POP PROX PSV 72.30 cm/s [facility] RT POP DIST PSV -109.00 cm/s [facility] RT POP PROX PSV 75.70 cm/s [facility] LT SUPERVISOR FORMING DEPARTMENT DIST PSV 44.40 cm/s [facility] LT SUPERVISOR FORMING DEPARTMENT PROX PSV 37.50 cm/s [facility] RT SUPERVISOR FORMING DEPARTMENT DIST PSV 77.90 cm/s [facility] RT SUPERVISOR FORMING DEPARTMENT PROX PSV 55.50 cm/s HM [facility] LT SFA DIST PSV -129.00 cm/s HM [facility] LT SFA MID PSV -122.00 cm/s HM [facility] LT SFA PROX PSV -149.00 cm/s HM [facility] RT SFA DIST PSV -176.00 cm/s HM [facility] RT SFA MID PSV -140.00 cm/s HM [facility] RT SFA PROX PSV -184.00 cm/s HM [facility] LT YANIRA MAX PSV 70.00 cm/s [facility] RT YANIRA MAX PSV 72.00 cm/s [facility] LT JUWAN MAX PSV 88.60 cm/s [facility] RT JUWAN MAX PSV 61.50 cm/s HM [facility] LT POP MAX PSV 106.00 cm/s HM [facility] RT POP MAX PSV 109.00 cm/s HM [facility] LT PTS MAX PSV 44.40 cm/s HM [facility] RT SUPERVISOR FORMING DEPARTMENT MAX PSV 77.90 cm/s HM [facility] LT SFA MAX PSV 149.00 cm/s HM [facility] RT SFA MAX PSV 184.00 cm/s [facility] Specimen Narrative Performed At This result has an attachment that is no t available. Mild atherosclerotic plaques throughout the both lower extremity [facility] arteries with hemodynamically significant aging Biphasic waveforms in both lower extremity arteries Normal bilateral ABIs Performing Organization Address City/State/ZIP Code Phon e Number [facility] [address] [facility] [place] [address] Us duplex aorta complete (12/21/2019 10:30 AM CDT) Pathologist Sig nature MCR Prox Aorta Dist AP Abd 2.04 cm [facility] MCR Mid Aorta Dist AP Abd 1.56 cm [facility] MCR Dist Aorta Dist AP ABD 1.33 cm [facility] Specimen Narrative Performed At This result has an attachment that is no t available. No evidence of abdominal aortic aneurysm. [facility] Performing Organization Address City/State/ZIP Code Phon e Number [facility] [address] [place] [address] carotid duplex (12/21/2019 10:18 AM CDT) Pathologist Sig nature L CCA Prox -27.00 (A) cm/s cm/s [facility] L CCA Prox -96.70 (A) cm/s cm/s HM [facility] Lt CCA Prox RI 72.08 [facility] L ECA Prox -25.20 (A) cm/s cm/s [facility] L ECA Prox -107.00 (A) cm/s cm/s HM [facility] R ECA Prox -18.70 (A) cm/s cm/s [facility] Rt ECA Prox PSV -80.90 cm/s HM [facility] L ICA Prox -32.20 (A) cm/s cm/s HM [facility] L ICA Prox -69.00 (A) cm/s cm/s HM [facility] R ICA Prox -22.60 (A) cm/s cm/s HM [facility] R ICA Prox -71.90 (A) cm/s cm/s HM [facility] L ICA/CCA Ratio 1.62 cm/s HM [facility] R ICA/CCA Ratio 1.34 cm/s HM [facility] Lt CCA Prox SD 358.15 HM [facility] L CCA Max 96.70 cm/s cm/s HM [facility] R CCA Max 89.70 cm/s cm/s HM SYNGO Lt ECA Prox RI 76.45 HM [facility] Lt ECA Prox SD 424.60 HM [facility] Rt ECA Prox RI 76.89 HM [facility] Rt ECA Prox SD 432.62 HM [facility] Lt ICA Prox RI 53.33 cm/s HM [facility] Lt ICA Prox SD 214.29 HM [facility] L ICA Max 157.00 cm/s cm/s HM [facility] Rt ICA Prox RI 68.57 cm/s HM [facility] Rt ICA Prox SD 318.14 cm/s HM [facility] R ICA Max 120.00 cm/s cm/s HM [facility] R CCA Prox 17.80 cm/s cm/s HM [facility] R CCA Prox 89.70 cm/s cm/s HM [facility] Rt CCA Prox RI 80.16 HM [facility] Rt CCA Prox SD 503.93 HM [facility] Lt CCA Dist SD Ratio 324.70 HM SYN[facility] Lt ICA Dist SD Ratio 318.46 HM [facility] Rt CCA Dist SD Ratio 311.76 HM [facility] RT ICA Dist SD Ratio 333.33 cm/s HM [facility] R CCA Dist 23.80 cm/s cm/s HM [facility] R CCA Dist 74.20 cm/s cm/s HM [facility] RT CCA DIST RI 67.92 cm/s HM [facility] RT CCA PROX SD RATIO 503.93 cm/s HM [facility] L ICA Dist -49.30 (A) cm/s cm/s HM [facility] L ICA DIST -157.00 (A) cm/s cm/s HM [facility] R ICA Dist -36.00 (A) cm/s cm/s HM [facility] Lt IC/CC 162.36 cm/s HM [facility] L CCA Dist -24.70 (A) cm/s cm/s HM [facility] L CCA Dist -80.20 (A) cm/s cm/s HM [facility] Lt CCA Distal RI 69.20 HM [facility] Lt ICA Distal RI 68.60 HM [facility] Rt ICA Distal EDV -36.00 cm/s HM [facility] R ICA Dist -120.00 (A) cm/s cm/s HM [facility] Rt ICA Distal RI 70.00 HM [facility]NGO R ECA Prox 80.90 cm/s cm/s HM [facility] Specimen Narrative Performed At This result has an attachment that is no t available. Mild calcified plaques in both carotid bifurcation area without HM [facility] hemodynamically significant lesion. Bilateral antegrade vertebral artery flow. Performing Organization Address City/State/ZIP Code Phon e Number [facility] [address] [place] [address] Transthoracic Echocardiogram Complete, (w Contrast, Strain and 3D if needed) (12/21/2019 9:55 AM CDT) Pathologist Sig nature AoV Area, Vmax 1.58 cm2 HM [facility] AoV Area, VTI 1.63 cm2 HM [facility] AoV Mean PG 5.00 mmHg HM [facility] AoV Peak PG 7.51 mmHg HM [facility] AoV Vmax 1.37 m/s HM [facility] AoV VTI 0.36 m HM [facility] BSA Lang 1.93 m2 HM [facility] BSA 1.88 m2 HM [facility] IVS,d 0.88 cm HM [facility] IVS/LVPW,2D 0.95 HM [facility] Left Atrium Dimension Anterior 4.00 cm HM [facility] LV,d 5.27 cm HM [facility] LV EF,2D 53.94 % HM [facility] LV,s 4.07 cm HM [facility] LVOT area 2.27 cm2 HM [facility] LVOT Diam,S 1.70 cm HM [facility] LVOT Vmax 0.85 m/s HM [facility] LVOT VTI 0.23 m HM [facility] LVPWD,d 0.92 cm HM [facility] RVSP (TR) 32.56 mmHg HM [facility] TR Vpeak 2.61 mm/s HM [facility] MV E A ratio 0.96 HM [facility] RA pressure 10.00 mmHg HM [facility] TR pk grad 22.56 mmHg HM [facility] AoV area i VTI BSA [place] 0.87 cm2/m2 HM [facility] MR Vmax 5.55 m/s HM [facility] MR peak grad 94.87 mmHg HM [facility] BMI 26.47 kg/m2 HM [facility] E wave decelartion time 384.00 msec HM [facility] MV Peak A Kg 0.72 m/s HM [facility] MV valve area p 1/2 method 1.98 cm2 HM [facility] MV Peak E Kg 0.69 m/s HM [facility] MV stenosis pressure 1/2 time 111.36 ms HM [facility] AV LVOT peak gradient 2.89 mmHg HM [facility] RVSP 32.56 mmHg HM [facility] Ao Root,d,2D 2.20 cm HM [facility] LV SYS VOL 72.94 ml HM [facility] LV WILLETT VOL 133.58 ml HM [facility] LV SI Teich 2D 32.21 ml/m2 HM [facility] LV SV Teich 2D 60.64 ml HM [facility] LV Vol s Teich PSAX 72.94 ml HM [facility] LVOT SI 31.50 ml/m2 HM [facility] BSA [place] 1.92 m2 HM [facility] AoV Cusp sep 1.70 HM [facility] Aortic Root 2.40 cm HM [facility] AoV Vmn 1.02 HM [facility] LV FS Teich 2D 22.77 HM [facility] MV AE ratio 1.04 HM [facility] LA Ao Ratio Mmode 1.67 HM [facility] LV FS Cube 2D 22.77 HM [facility] LVOT Vmn 0.59 HM [facility] Pt Size 170.18 HM [facility] Pt Wt 76.66 HM [facility] Aov area Vmn 1.46 cm2 HM [facility] LA A_P score P 2.25 HM [facility] LVOT mean grad 2.00 mmHg HM [facility] Ao d LA s ratio 0.55 HM [facility] AoV area I VMN bsa 0.78 cm2/m2 HM [facility] LV press s 157.51 mmHg HM [facility] LV SI Cube 2D 41.94 ml/m2 HM [facility] LV SV Cube 2D 78.94 ml HM [facility] LV vol d cube 2D 146.36 ml HM [facility] LV vol s cube 2D 67.42 ml HM [facility] Velocity Ratio (V1/V2) 0.62 m/s [facility] EF 45.40 % [facility] E/A ratio 0.96 [facility] LA diam s 4.00 cm HM [facility] Specimen Narrative Performed At This result has an attachment that is no t available. Left ventricular systolic function is moderately impaired. [facility] Left Ventricular ejection fraction is 35 - 40%. Spectral Doppler shows impaired relaxation pattern of left ventricular diastolic filling. There is akinesis in the segment of the wall. : dis mahnaz anteroseptal and anteroapical. Normal right ventricular size, wall thickness and g lobal function Trace mitral valve regurgitation. Mild tricuspid valve regurgitation. Normal pulmonar y artery systolic pressure. There is mild sclerosis of the aortic valve leaflet s. No pericardial effusion seen Performing Organization Address City/State/ZIP Code Phon e Number [facility] [address] [place] [address] CBC with platelet and differential (12/12/2019 9:11 AM CDT) Pathologist Sig nature WBC 8.4 3.8 - 10.8 [facility] Thousand/uL [place] RBC 4.07 3.80 - 5.10 [facility] Million/uL [place] HGB 12.0 11.7 - 15.5 [facility] g/dL [place] HCT 37.0 35.0 - 45.0 % [facility] [place] MCV 90.9 80.0 - 100.0 fL [facility] [place] MCH 29.5 27.0 - 33.0 pg [facility] [place] MCHC 32.4 32.0 - 36.0 [facility] g/dL [place] RDW 13.4 11.0 - 15.0 % [facility] [place] Platelet count 186 140 - 400 [facility] Thousand/uL [place] MPV 11.3 7.5 - 12.5 fL [facility] [place] Neutrophils, absolute 4,654 1,500 - 7,800 [facility] cells/uL [place] Lymphocytes, absolute 2,747 850 - 3,900 [facility] cells/uL [place] Monocytes, absolute 647 200 - 950 [facility] cells/uL [place] Eosinophils, absolute 319 15 - 500 [facility] cells/uL [place] Basophils, absolute 34 0 - 200 [facility] cells/uL [place] Neutrophils 55.4 % [facility] [place] Lymphocytes 32.7 % [facility] [place] Monocytes 7.7 % [facility] [place] Eosinophils 3.8 % [facility] [place] Basophils + RC 0.4 % [facility] [place] Specimen Blood Narrative Performed At FASTING:YES [facility] FASTING: YES Resulting Agency Comment Performing Organization Information: Site ID: [id number] Name: [facility] Address: [address] [place] [phone] Director: Adonis Saavedra Performing Organization Address [facility] [place] [address] Hemoglobin A1c (12/12/2019 9:11 AM CDT) Hemoglobin A1C 6.0 (H) <5.7 % of [facility] Comment: total Hgb [place] For someone without known diabetes, a hemoglobin A1c value between 5.7% and 6.4% is consistent with prediabetes and should be confirmed with a follow-up test. For someone with known diabetes, a value <7% indicates that their diabetes is well controlled. A1c targets should be individualized based on duration of diabetes, age, comorbid conditions, and other considerations. This assay result is consistent with an increased risk of diabetes. Currently, no consensus exists regarding use of hemoglobin A1c for diagnosis of diabetes for children. Specimen Blood Narrative Performed At FASTING:YES [facility] FASTING: YES Resulting Agency Comment Performing Organization Information: Site ID: [id number] Name: [facility] Address: [address] [place] [phone] Director: Adonis Saavedra Performing Organization Address [facility] [place] [address] Hepatic function panel (12/12/2019 9:11 AM CDT) Pathologist Sig nature Protein 7.6 6.1 - 8.1 g/dL [facility] [place] Albumin, S 4.3 3.6 - 5.1 g/dL [facility] [place] Globulin, total 3.3 1.9 - 3.7 g/dL [facility] (calc) [place] Albumin/globulin ratio 1.3 1.0 - 2.5 [facility] (calc) [place] Total bilirubin 0.5 0.2 - 1.2 mg/dL [facility] [place] Bilirubin direct 0.1 < OR = 0.2 [facility] mg/dL [place] Bilirubin, indirect 0.4 0.2 - 1.2 mg/dL [facility] (calc) [place] Alkaline phosphatase 82 37 - 153 U/L [facility] [place] AST 16 10 - 35 U/L [facility] [place] ALT 11 6 - 29 U/L [facility] [place] Specimen Blood Narrative Performed At FASTING:YES [facility] FASTING: YES Resulting Agency Comment Performing Organization Information: Site ID: [id number] Name: [facility] Address: [address] [place] [phone] Director: Adonis Saavedra Performing Organization Address City/State/ZIP Code [place] [address] Lipid panel (12/12/2019 9:11 AM CDT) Cholesterol, total 189 <200 mg/dL [facility] [place] HDL cholesterol 59 > OR = 50 [facility] mg/dL [place] Triglycerides 86 <150 mg/dL [facility] [place] LDL cholesterol 111 (H) mg/dL (calc) [facility] calculated Comment: [place] Reference range: <100 Desirable range <100 mg/dL for primary prevention; <70 mg/dL for patients with CHD or diabetic patients with > or = 2 CHD risk factors. LDL-C is now calculated using the Lee calculation, which is a validated novel method providi ng better accuracy than the Friedewald equation in the estimation of LDL-C. Main TOBAR et al. RACHAEL. 2013;310(19): 8315-4851 (http://education.[employer]/faq/ZRW871) Cholesterol/HDL 3.2 <5.0 (calc) [facility] ratio [place] Non-HDL cholesterol 130 (H) <130 mg/dL [facility] Comment: (calc) [place] For patients with diabetes plus 1 major ASCVD risk factor, treating to a non-HDL-C goal of <100 mg/dL (LDL-C of <70 mg/dL) is considered a therapeutic option. Specimen Blood Narrative Performed At FASTING:YES [facility] FASTING: YES Resulting Agency Comment Performing Organization Information: Site ID: [id number] Name: [facility] Address: [address] [place] [phone] Director: Adonis Saavedra Performing Organization Address [facility] [place] [address] Basic metabolic panel (12/12/2019 9:11 AM CDT) [facility] Glucose 107 (H) 65 - 99 [facility] Comment: mg/dL [place] Fasting reference interval For someone without known diabetes, a glucose value between 100 and 125 mg/dL is consistent with prediabetes and should be confirmed with a follow-up test. BUN 14 7 - 25 mg/dL [facility] [place] Creatinine 0.86 0.50 - 0.99 [facility] Comment: mg/dL [place] For patients >49 years of age, the reference limit for Creatinine is approximately 13% higher for people identified as -Vincentian. EGFR Non-Afr. 70 > OR = 60 [facility] Vincentian mL/min/1.73m [place] 2 EGFR 81 > OR = 60 [facility] Vincentian mL/min/1.73m [place] 2 BUN/creatinine NOT APPLICABLE 6 - 22 [facility] ratio (calc) [place] Sodium 138 135 - 146 [facility] mmol/L [place] Potassium 5.0 3.5 - 5.3 [facility] mmol/L [place] Chloride 101 98 - 110 [facility] mmol/L [place] CO2 30 20 - 32 [facility] mmol/L [place] Calcium 10.7 (H) 8.6 - 10.4 [facility] mg/dL [place] Specimen Blood Narrative Performed At FASTING:YES [facility] FASTING: YES Resulting Agency Comment Performing Organization Information: Site ID: [id number] Name: [facility] Address: [address] [place] [phone] Director: Adonis Saavedra Performing Organization Address City/State/ZIP Code Phon e Number [facility] [address] [address] Miscellaneous Lab Result (12/12/2019) Specimen Blood Narrative Performed At This result has an attachment that is no t available. Implantable defibrillator on (07/16/2019) Narrative Performed At This result has an attachment that is no t available. 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
--- OUTSIDE RECORDS SUMMARY | 2020-02-16 14:18 | XMS REPORT | Continuity of Care Document ---
:1950 Author Organization [facility] t Address [address] [place] [address] Dr. Cis[address]. [address] [place] [address] Care Team Providers Name Role Phone Jewel VALENTINE O. Primary Care Physician Charlene Fernandes MD. Attending Clinician EVELIN Attending Clinician Unavailable Provider Attending Clinician Payers Payer Name Policy Type Policy Effective Date Expiration Date Sour ce Number [facility] MEDICAREAARP [id number] 2019 [place] MEDICARE ADVANTAGE 00:00:00 Method ist PLAN HMO-POS (WELLMED)[id number] 2019-PresentHM O Problems This patient has no known problems. Allergies, Adverse Reactions, Alerts This patient has no known allergies or adverse reactions. Social History Social Habit Start Date Stop Date Quantity Comments Source Sex Assigned At [place] [facility] Tobacco use and 2019-12-21 2019-12-21 Former user [place] [facility] exposure 00:00:00 00:00:00 Smoking Status Start Date Stop Date Source Former smoker 2019-12-21 00:00:00 2019-12-21 00:00:00 [place] [facility] Medications Ordered Filled Start Stop Current Ordering Indication Dosage Frequency Signature Comments Components Source Medication Medication Date Date Medication? Clinician (SIG) Name Name aspirin 2019- Yes 81mg QD Take 81 mg [place] (ECOTRIN) 12-20 by mouth Method i 81 MG 12:15: daily. st enteric 01 coated tablet mv-min/iron 2019- Yes QD Take by [facility] /folic/calc 17 mouth Methodi ium/vitK 12:15: daily. st (WOMEN'S 01 MULTIVITAMI N ORAL) levothyroxi Yes 125ug QD Take 125 H oumegan ne 8-17 mcg by [facility] (SYNTHROID) 12:15: mouth st 125 mcg 01 daily. tablet atorvastati 2020- Yes Hypercholes 20mg QD Take 1 Orr ana (LIPITOR) 12-20 terolemia tablet (20 Methodi 20 mg 00:00: 23:59 mg total) st tablet 00 :00 by mouth daily. Default OP ins carvediloL 2020- No Chronic 12.5mg Q.5D Take 1 Orr (COREG) 11-01 systolic tablet Metho di 12.5 MG 00:00: 23:59 heart (12.[address] tablet 00 :00 failure total) by ([facility]) mouth 2 (two) times a day. lisinopriL- Yes Take 1 [place] [facility] 5-[facility] mouth once st (PRINZIDE) 00 daily 10-12.5 mg per tablet lisinopril- 2019- No TAKE 1 [facility] hydrochloro 1-13 05-14 [facility]:[address] (PRINZIDE) 00 :00 DAILY 10-12.5 mg per tablet lisinopril- 2019- No TAKE 1 [facility] hydrochloro 1-10 01-13 TABLET BY [facility] thiazide 00:00: 00:[address] (PRINZIDE) 00 :00 DAILY 10-12.5 mg per tablet lisinopril- 2019- No 1{tbl} QD Take 1 [place] hydrochloro 7-09 01-10 tablet by [facility] thiazide 00:00: 00:[address] (PRINZIDE,Z 00 :00 daily. ESTORETIC) 10-12.5 mg per tablet SYNTHROID 2015-05- No QD daily. Grzegorz on 112 mcg 06-29 Methodi tablet 00:00: 00:00 st 00 :00 LUMIGAN 2015-05 Yes QD nightly. Mae perez 0.01 % 1-16 Method[facility] ophthalmic 00:00: st drops 00 Vital Signs Vital Name Observation Time Observation Value Comments Source Systolic blood 2019-12-21 12:14:00 150 mm[Hg] Mae Wang pressure Diastolic blood 2019-12-21 12:14:00 67 mm[Hg] [facility] on [facility] pressure Heart rate 2019-12-21 12:14:00 70 /min [facility] Body weight 2019-12-21 12:14:00 76.658 kg Kirby Wang BMI 2019-12-21 12:14:00 26.47 kg/m2 Kirby Wang Body height 2019-12-21 08:40:00 170.2 cm Kirby Wang Body temperature 2019-11-02 09:27:00 36.5 Hermila Alix Wang Procedures Procedure Date / Time Performed Performing Clinician Sourc e CV STRESS TEST NUCLEAR 2019-12-21 12:03:16 Alejandro Fernandes CARDIO NM MYOCARDIAL PERFUSION 2019-12-21 12:03:16 Waldemar Montaño REST STRESS 1 DAY PV PHYSIOLOGIC ARTERIAL 2019-12-21 11:24:00 Alejandro Fernandes LOWER EXTREMITY W EXERCISE US DUPLEX ARTERIAL LOWER 2019-12-21 11:13:23 Alejandro Fernandes EXTREMITY BILATERAL US DUPLEX AORTA INFERIOR 2019-12-21 10:30:00 Alejandro Fernandes VENA CAVA COMPLETE US CAROTID DUPLEX 2019-12-21 10:18:07 Alejandro Fernandes M ethodist BILATERAL TTE COMPLETE, WO 2019-12-21 09:55:00 Alejandro Fernandes Me thodist CONTRAST, W DOPPLER ([id number]) BASIC METABOLIC PANEL 2019-12-12 09:11:00 Alejandro Fernandes on [facility] CBC WITH PLATELET AND 2019-12-12 09:11:00 Alejandro Fernandes on [facility] DIFFERENTIAL HEMOGLOBIN A1C 2019-12-12 09:11:00 Alejandro Fernandes Met nava HEPATIC FUNCTION PANEL 2019-12-12 09:11:00 Alejandro Fernandes LIPID PANEL 2019-12-12 09:11:00 Alejandro Fernandes Met nava [id number] 2019-12-12 00:00:00 Ruben Fraser IMPLANTABLE DEFIBRILLATOR 2019-07-16 00:00:00 Provider, Anne Marie Araya ON Plan of Care Planned Activity Planned Date Details Comments Source Future Scheduled 2019-12-05 INFLUENZA VACCINE [place] [facility] Test 00:00:00 [code = INFLUENZA VACCINE] Future Scheduled 2017 65+ PNEUMOCOCCAL [place] [facility] Test 00:00:00 VACCINE (1 of 1 - PPSV23) [code = 65+ PNEUMOCOCCAL VACCINE (1 of 1 - PPSV23)] Future Scheduled 2002 BREAST CANCER [facility] thodist Test 00:00:00 SCREENING [code = BREAST CANCER SCREENING] Future Scheduled 2002 [facility] Test 00:00:00 [code = COLONOSCOPY SCREENING] Future Scheduled 2002 SHINGLES VACCINES (#1) [place] [facility] Test 00:00:00 [code = SHINGLES VACCINES (#1)] Future Scheduled 1962 DIABETIC FOOT EXAM [place] [facility] Test 00:00:00 [code = DIABETIC FOOT EXAM] Future Scheduled 1962 URINE MICROALBUMIN [place] [facility] Test 00:00:00 [code = URINE MICROALBUMIN] Future Scheduled 1952 DIABETIC RETINAL EYE [facility] Test 00:00:00 EXAM [code = DIABETIC RETINAL EYE EXAM] Encounters Start End Encounter Admission Attending Care Care Encounter Source Date/Time Date/Time Type Type Clinicians Facility Department ID 2019-12-21 2019-12-21 Outpatient MONTAÑO, [address] 00:00:00 00:00:00 WALDEMAR 117 Meth mary 2019-12-21 2019-12-21 Outpatient FERNANDES, [address] 00:00:00 00:00:00 ALEJANDRO 119 Method i 2019-12-21 2019-12-21 Outpatient FERNANDES, [address] 00:00:00 00:00:00 ALEJANDRO 120 Method i 2019-12-21 2019-12-[address] 00:00:00 00:00:00 ALEJANDRO 122 Method i 2019-12-21 2019-12-21 Outpatient FERNANDES, [facility] [id number] [place] [address] 00:00:00 00:00:00 ALEJANDRO 123 Method i 2019-12-21 2019-12-21 Outpatient FERNANDES, [address] 00:00:00 00:00:00 ALEJANDRO [address] 2019-12-21 2019-12-21 Outpatient DOM [facility] [id number] 098 [place] 00:00:00 00:00:00 ALEJANDRO [address] 2019-11-02 2019-11-02 Outpatient DOM [facility] [id number] 091 [place] 00:00:00 00:00:00 ALEJANDRO [address] Results Test Description Test Time Test Comments Results Result Comments Source Basic metabolic panel 2019-12-14 16:08:00 Test Item Value Reference Range Interpretation Comme nts Glucose (test code = 107 mg/dL 65-99 H Fasting 2345-7) reference inter lin For someone without known diabetes, a glu cose valuebetween 10 0 and 125 mg/dL is consis tent withprediabetes and should be confi rmed with afollow-up test . BUN (test code = 14 mg/dL 7-25 3094-0) Creatinine (test code = 0.86 mg/dL 0.5-0.99 For patients >49 years of 2160-0) age, the refere nce limitfor Creati nine is approximately 1 3% higher for peopleident ified as -Neeta n. EGFR Non-Afr. [place] 70 > OR = 60 (test code = 2775) mL/min/1.73m2 EGFR 81 > OR = 60 (test code = 90988-4) mL/min/1.73m2 BUN/creatinine ratio NOT APPLICABLE 6- 22 (calc) (test code = 3097-3) Sodium (test code = 138 mmol/L 819-525 4665-2) Potassium (test code = 5.0 mmol/L 3.5-5.3 2823-3) Chloride (test code = 101 mmol/L 98-110 2075-0) CO2 (test code = 30 mmol/L 20-32 8-9) Calcium (test code = 10.7 mg/dL 8.6-10.4 H 07129-4) EFRAIN (test code = EFRAIN) FASTING:YESFASTING: YES RAC (test code = RAC) Performing Organization Information: Site ID: [facility] Name: [email or web address] Lab Address: [address] [place] [phone] Director: Adonis Saavedra Lab Interpretation Abnormal (test code = 91304-1) [place] [facility] [id number] 16:08:00 Test Item Value Reference Range Interpretation Comments Cholesterol, total 189 mg/dL <200 (test code = 2093-3) HDL cholesterol 59 mg/dL > OR = 50 (test code = 2085-9) Triglycerides (test 86 mg/dL <150 code = 2571-8) LDL cholesterol 111 mg/dL (calc) H Reference ra nge: calculated (test <100 Desira ble code = 24885-6) range <100 m g/dL for primary prevention; <7 0 mg/dL for patients with C HD or diabetic patients with > or = 2 CHD risk factors. LDL-C is now calculated using the Lee calculation, which is a validated novel method providin g better accuracy than the Friedewald equation in the estimation of LDL-C. Main Miller S et al. RACHAEL. 2013;310(19): 2177-4081 (http://educati on .[employer] .com/faq/NEY780 ) Cholesterol/HDL 3.2 <5.0 (calc) ratio (test code = 9830-1) Non-HDL cholesterol 130 <130 mg/dL H For marie ents with (test code = (calc) diabetes plus 1 66664-3) major ASCVD ris k factor, treatin g to a non-HDL-C goal of <100 mg/dL (LDL-C of <70 mg/dL) is considered a therapeutic option. EFRAIN (test code = FASTING:YESFASTING EFRAIN) : YES RAC (test code = Performing RAC) Organization Information: Site ID: RGA Name: [facility] Lab Address: [address] [place] [phone] Director: Adonis Saavedra Lab Interpretation Abnormal (test code = 66113-4) [place] [facility] function [id number] 16:08:00 Test Item Value Reference Range Interpretation Comments Protein (test code = 7.6 g/dL 6.1-8.1 2885-2) Albumin, S (test code 4.3 g/dL 3.6-5.1 = 1751-7) Globulin, total (test 3.3 1.9- 3.7 g/dL code = 94042-8) (calc) Albumin/globulin 1.3 1.0- 2.5 (calc) ratio (test code = 1759-0) Total bilirubin (test 0.5 mg/dL 0.2-1.2 code = 1974-) Bilirubin direct 0.1 mg/dL < OR = 0.2 (test code = 1967-7) Bilirubin, indirect 0.4 0.2- 1.2 mg/dL (test code = 1970-) (calc) Alkaline phosphatase 82 U/L 37-153 (test code = 6768-6) AST (test code = 16 U/L 10-35 1920-8) ALT (test code = 11 U/L 6-29 1742-6) EFRAIN (test code = EFRAIN) FASTING:YESFASTING: YES RAC (test code = RAC) Performing Organization Information: Site ID: RGA Name: [email or web address] Lab Address: [address] [place] [phone] Director: Adonis Saavedra [place] [facility] [id number] 16:08:00 Test Item Value Reference Interpretation Comments Range Hemoglobin A1C 6.0 <5.7 % of H For someone w ithout (test code = total Hgb known diabetes, a 4548-4) hemoglobin A1c value between 5.7% an d 6.4% is consist ent withprediabetes and should be confi rmed with a follow-u p test. For someo ne with known diab etes, a value <7%indicates that their diabetes is well controlled . [id number] shou ld be individualized based on duration ofdiabetes, age , comorbid condit ions, and otherconsiderat ions. This assay resu lt is consistent with an increased risko f diabetes. Curre ntly, no consensus ex ists regarding use ofhemoglobin A1 c for diagnosis of diabetes for children. EFRAIN (test code = FASTING:YESFASTIN EFRAIN) G: YES RAC (test code = Performing RAC) Organization Information: Site ID: [facility]: [facility] Lab Address: [address] [place] [phone] Director: Adonis Saavedra Lab Interpretation Abnormal (test code = 79441-0) [place] [facility] with platelet and [id number] 16:08:00 Test Item Value Reference Range Interpretation Comments WBC (test code = 8.4 3.8- 10.8 6690-2) Thousand/uL RBC (test code = 4.07 3.80- 5.10 789-8) Million/uL HGB (test code = 12.0 g/dL 11.7-15.5 718-7) HCT (test code = 37.0 % 35-45 4544-3) MCV (test code = 90.9 fL 80-100 787-2) MCH (test code = 29.5 pg 27-33 785-6) MCHC (test code = 32.4 g/dL 32-36 786-4) RDW (test code = 13.4 % 11-15 788-0) Platelet count (test 186 140- 400 code = 777-3) Thousand/uL MPV (test code = 11.3 fL 7.5-12.5 776-5) Neutrophils, absolute 4654 1,500 - 7,800 (test code = 751-8) cells/uL Lymphocytes, absolute 2747 850- 3,900 (test code = 731-0) cells/uL Monocytes, absolute 647 200- 950 cells/uL (test code = 742-7) Eosinophils, absolute 319 15- 500 cells/uL (test code = 711-2) Basophils, absolute 34 0- 200 cells/uL (test code = 704-7) Neutrophils (test 55.4 % code = 770-8) Lymphocytes (test 32.7 % code = 736-9) Monocytes (test code 7.7 % = 5905-5) Eosinophils (test 3.8 % code = 713-8) Basophils + RC (test 0.4 % code = 706-2) EFRAIN (test code = EFRAIN) FASTING:YESFASTING: YES RAC (test code = RAC) Performing Organization Information: Site ID: [facility] Name: [email or web address] Lab Address: [address] [place] [phone] Director: Adonis Wang
[2020-02-16] MEDS ORDERED: ONDANSETRON 4 MG/2 ML VIAL ONE (15:27)
[2020-02-16] MEDS ORDERED: MORPHINE 4 MG/ML SYR ONE (15:27)
[2020-02-16 15:49] LABS: Absolute Lymphocytes (CBC) 2.9 K/uL (0.7-4.9); Basophils % 0.3 % (0-1.3); Hematocrit 38.1 % (36.0-45.0); Lymphocytes % 33.4 % (15.3-44.8); MPV 9.3 fL (7.6-11.3); RBC Red Blood Cell Count 4.25 M/uL (3.86-4.86)
[2020-02-16 15:51] LABS: Protime INR 1.05
[2020-02-16 16:32] LABS: Urine Blood NEGATIVE (NEG); Urine Glucose NEGATIVE (NEG); Urine Specific Gravity 1.025 (1.005-1.030)
[2020-02-16 16:33] LABS: Urine Protein NEGATIVE (NEG)
--- NOTE | 2020-02-16 16:41 | RAD REPORT ---
EXAM DESCRIPTION: RAD - Tib Fib Left - 02/16/2020 3:49 pm CLINICAL HISTORY: Leg pain, swelling COMPARISON: None. FINDINGS: No fracture is identified. There is no dislocation or periosteal reaction noted. No acute or suspicious bony finding. Minimal degenerative change at the ankle and knee joints. No foreign body or other soft tissue abnormality. IMPRESSION: Negative left tibia & fibula examination for acute or significant finding.
--- NOTE | 2020-02-16 17:03 | EDPHYS ---
Physician Documentation [facility] Name: Greta Lambert Age: 69 yrs Sex: Female : 1950 Arrival Date: 02/16/2020 Time: 13:19 Bed 13 Private MD: ED Physician Canelo Meehan HPI: 02/15 15:01 This 69 yrs old Black Female presents to ER via Wheelchair with complaints of Left leg pm1 pain and rash. 15:01 The complaints affect the left upper thigh and left garcia. Modifying factors: The pm1 symptoms are alleviated by self resolved prior to arrival. the symptoms are aggravated by walking. Associated signs and symptoms: Pertinent negatives calf tenderness, fever, numbness, swelling, tingling. Treatment prior to arrival includes: no previous treatment. Severity of symptoms: in the emergency department the symptoms have resolved, and did so earlier today, a " 0" out of "10". Patient presents to the ER with complaints of pain to left garcia area where she has had a rash and to left groin area. No swelling and her pain to both area has resolved. Patient's rash to left garcia has been present for about 1 year. Patient denies any trauma or swelling. Historical: - Allergies: 13:29 No Known Allergies; jd3 - Home Meds: 13:29 aspirin 81 mg Oral TbEC [Active]; levothyroxine oral [Active]; lisinopril Oral [Active];jd3 - PMHx: 13:29 Myocardial infarction; CVA; jd3 - PSHx: 13:29 defibrillator implant device; jd3 - Immunization history:: Adult Immunizations up to date. - Social history:: Smoking status: Patient/guardian denies using tobacco, but has a distant history of tobacco abuse. ROS: 15:01 Constitutional: Negative for fever, chills, and weight loss, Cardiovascular: Negative pm1 for chest pain, palpitations, and edema, Respiratory: Negative for shortness of breath, cough, wheezing, and pleuritic chest pain, Abdomen/GI: Negative for abdominal pain, nausea, vomiting, diarrhea, and constipation, Back: Negative for injury and pain. 15:01 Neuro: Negative for headache, weakness, numbness, tingling, and seizure. 15:01 MS/extremity: Positive for pain, of the left leg. 15:01 MS/extremity: Negative for swelling. 15:01 Skin: Positive for rash, of the left garcia, Negative for swelling. Exam: 15:01 Constitutional: This is a well developed, well nourished patient who is awake, alert, pm1 and in no acute distress. Head/Face: Normocephalic, atraumatic. 15:01 MS/ Extremity: Pulses equal, no cyanosis. Neurovascular intact. Full, normal range of motion. No tenderness present to left leg 15:01 Cardiovascular: Exam negative for acute changes, Rate: normal, Rhythm: regular, Pulses: no pulse deficits are appreciated. 15:01 Respiratory: Exam negative for acute changes, respiratory distress, shortness of breath. 15:01 Skin: Appearance: normal except for affected area, rash can be described as papular, on the left garcia, irregular. Vital Signs: 13:29 BP 154 / 79; Pulse 76; Resp 17 S; Temp 98.6(O); Pulse Ox 100% on R/A; Weight 72.57 kg jd3 (R); Height 5 ft. 7 in. (170.18 cm) (R); Pain 7/10; 14:27 BP 162 / 76; Pulse 72; Resp 15 S; Pulse Ox 100% on R/A; ca1 15:30 BP 176 / 59; Pulse 73; Resp 16 S; Pulse Ox 100% on R/A; ca1 16:30 BP 150 / 86; Pulse 68; Resp 15 S; Pulse Ox 100% on R/A; ca1 13:29 Body Mass Index 25.06 (72.57 kg, 170.18 cm) jd3 MDM: 14:32 Patient medically screened. pm1 17:01 Data reviewed: vital signs. Data interpreted: Pulse oximetry: on room air is 100 %. pm1 Interpretation: normal. 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 02/15 15:00 Order name: CBC with Diff; Complete Time: 16:07 pm1 02/15 15:00 Order name: Ptt, Activated; Complete Time: 16:07 pm1 02/15 15:00 Order name: PT-INR; Complete Time: 16:07 pm1 02/15 15:01 Order name: Tib Fib Left XRAY; Complete Time: 16:51 pm1 02/15 15:43 Order name: Urine Dipstick--Ancillary (enter results); Complete Time: 16:51 bd Administered Medications: No medications were administered Disposition: 18:29 Co-signature as Attending Physician, Canelo Meehan MD. rn Disposition: 02/16/20 17:02 Discharged to Home. Impression: Rash and other nonspecific skin eruption. - Condition is Stable. - Discharge Instructions: Rash. - Medication Reconciliation Form, Thank You Letter, Antibiotic Education, Prescription Opioid Use form. - Follow up: Emergency Department; When: As needed; Reason: Worsening of condition. Follow up: Private Physician; When: 2 - 3 days; Reason: Recheck today's complaints, Continuance of care, Re-evaluation by your physician. - Problem is new. - Symptoms are unchanged. Signatures: Dispatcher [employer] EDChiquis Hernandez RN RN iw Nieto, Roman, MD MD rn Marinas, Patrick, INVESTMENT FUND MANAGER INVESTMENT FUND MANAGER pm1 Marcelino Kirkpatrick RN RN jd3 Corrections: (The following items were deleted from the chart) 17:08 17:02 02/16/2020 17:02 Discharged to Home. Impression: Rash and other nonspecific skin iw eruption. Condition is Stable. Forms are Medication Reconciliation Form, Thank You Letter, Antibiotic Education, Prescription Opioid Use. Follow up: Emergency Department; When: As needed; Reason: Worsening of condition. Follow up: Private Physician; When: 2 - 3 days; Reason: Recheck today's complaints, Continuance of care, Re-evaluation by your physician. Problem is new. Symptoms are unchanged. pm1
--- NOTE | 2020-02-16 17:03 | ER ---
Nurse's Notes [facility] Name: Greta Lambert Age: 69 yrs Sex: Female : 1950 Arrival Date: 02/16/2020 Time: 13:19 Bed 13 Private MD: Diagnosis: Rash and other nonspecific skin eruption Presentation: 02/15 13:27 Chief complaint: Patient states: "I have this spot that popped up that looks like a jd3 bruise and it hurts and I can hardly walk.". Coronavirus screen: At this time, the client does not indicate any symptoms associated with coronavirus-19. Ebola Screen: Patient negative for fever greater than or equal to 101.5 degrees Fahrenheit, and additional compatible Ebola Virus Disease symptoms. Initial Sepsis Screen: Does the patient meet any 2 criteria? No. Patient's initial sepsis screen is negative. Does the patient have a suspected source of infection? No. Patient's initial sepsis screen is negative. Risk Assessment: Do you want to hurt yourself or someone else? Patient reports no desire to harm self or others. Onset of symptoms was February 13, 2020. 13:27 Method Of Arrival: Wheelchair jd3 13:27 Acuity: DAGMAR 3 jd3 Historical: - Allergies: 13:29 No Known Allergies; jd3 - Home Meds: 13:29 aspirin 81 mg Oral TbEC [Active]; levothyroxine oral [Active]; lisinopril Oral [Active];jd3 - PMHx: 13:29 Myocardial infarction; CVA; jd3 - PSHx: 13:29 defibrillator implant device; jd3 - Immunization history:: Adult Immunizations up to date. - Social history:: Smoking status: Patient/guardian denies using tobacco, but has a distant history of tobacco abuse. Screenin:10 Abuse screen: Denies threats or abuse. Denies injuries from another. Nutritional ca1 screening: No deficits noted. Tuberculosis screening: No symptoms or risk factors identified. Fall Risk Gait- Impaired (20 pts.). Total Lu Fall Scale indicates No Risk (0-24 pts). Assessment: 14:10 General: Appears in no apparent distress. comfortable, Behavior is calm, cooperative, ca1 appropriate for age. Pain: Complains of pain in left femoral area Pain radiates to left leg Pain currently is 7 out of 10 on a pain scale. Pain began 2-3 days ago. Is intermittent, Aggravated by repositioning, weight bearing. Neuro: Level of Consciousness is awake, alert, obeys commands, Oriented to person, place, time, situation. Derm: Skin is intact, is healthy with good turgor, Skin is pink, warm \\T\\ dry. Derm: Bruising that is dark purple, on left garcia. Musculoskeletal: Circulation, motion, and sensation intact. Capillary refill < 3 seconds. 15:10 Reassessment: Patient appears in no apparent distress at this time. Patient and/or ca1 family updated on plan of care and expected duration. Pain level reassessed. Patient is alert, oriented x 3, equal unlabored respirations, skin warm/dry/pink. 16:00 Reassessment: Patient appears in no apparent distress at this time. Patient and/or ca1 family updated on plan of care and expected duration. Pain level reassessed. Patient is alert, oriented x 3, equal unlabored respirations, skin warm/dry/pink. 17:00 Reassessment: Patient appears in no apparent distress at this time. Patient and/or ca1 family updated on plan of care and expected duration. Pain level reassessed. Patient is alert, oriented x 3, equal unlabored respirations, skin warm/dry/pink. Vital Signs: 13:29 BP 154 / 79; Pulse 76; Resp 17 S; Temp 98.6(O); Pulse Ox 100% on R/A; Weight 72.57 kg jd3 (R); Height 5 ft. 7 in. (170.18 cm) (R); Pain 7/10; 14:27 BP 162 / 76; Pulse 72; Resp 15 S; Pulse Ox 100% on R/A; ca1 15:30 BP 176 / 59; Pulse 73; Resp 16 S; Pulse Ox 100% on R/A; ca1 16:30 BP 150 / 86; Pulse 68; Resp 15 S; Pulse Ox 100% on R/A; ca1 13:29 Body Mass Index 25.06 (72.57 kg, 170.18 cm) jd3 ED Course: 13:19 Patient arrived in ED. mr 13:28 Triage completed. jd3 13:32 Arm band placed on. jd3 14:09 Katrin Capps, RN is Primary Nurse. ca1 14:10 Patient has correct armband on for positive identification. Bed in low position. Call ca1 light in reach. Side rails up X 1. Pulse ox on. NIBP on. 14:28 Romero Finley NP is PHCP. pm1 14:28 Canelo Meehan MD is Attending Physician. pm1 15:35 No provider procedures requiring assistance completed. Initial lab(s) drawn, by ED ca1 staff, sent to lab. Inserted saline lock: 20 gauge in left forearm, using aseptic technique. Blood collected. 15:50 Tib Fib Left XRAY In Process Unspecified. EDMS 17:08 IV discontinued, intact, bleeding controlled, No redness/swelling at site. Pressure iw dressing applied. Administered Medications: No medications were administered Outcome: 17:02 Discharge ordered by . pm1 17:08 Discharged to home ambulatory, with family. iw 17:08 Condition: good 17:08 Discharge instructions given to patient, family, Instructed on discharge instructions, follow up and referral plans. Demonstrated understanding of instructions, follow-up care. 17:08 Patient left the ED. iw Signatures: Dispatcher [employer] EDND Le Resendez Irene, RN RN iw Romero Finley NP [employer] pm1 Marcelino Kirkpatrick RN RN jKatrin Corral RN RN ca1
[2020-02-16 17:14] VITALS: TEMP 98.6; O2SAT 100
[2020-02-16 17:15] VITALS: BP 162/76
== END 2020-02-16 17:08 | disposition home or self-care (01) ==
LOC: ER 13:15
DX: R21 Rash and other nonspecific skin eruption (principal); I25.2 Old myocardial infarction; Z79.82 Long term (current) use of aspirin; Z86.73 Personal history of transient ischemic attack (TIA), and cerebral infarction without residual deficits; Z95.810 Presence of automatic (implantable) cardiac defibrillator
CPT/HCPCS: 85025; 36415; 85610; 85730; 81003; 73590; 99284; J2405